=== PATIENT | female | born 1940 | race Caucasian/White ===

== ENCOUNTER 2018-12-17 08:02 | Inpatient (IN) ==
[2018-12-17] MEDS ORDERED: Isovue-370 500 ML BOTTLE IVP ONE ×2 (08:14→11:56)
[2018-12-17] MEDS ORDERED: Ondansetron 4 MG/2 ML VIAL IVP ONE (08:19)
[2018-12-17] MEDS ORDERED: *HR* FentaNYL (PF) 100 MCG/2 ML VIAL IVP ONE ×2 (08:19→14:58)
--- NOTE | 2018-12-17 08:19 | Emergency Department Note ---
Disposition Clinical Impression: Hypokalemia, Left hip pain Fracture of left ischial tuberosity Qualifiers: Encounter type: initial encounter Fracture type: closed Qualified Code(s): S32.692A - Other specified fracture of left ischium, initial encounter for closed fracture DVT, bilateral lower limbs Qualifiers: Affected thrombotic vein of extremity: unspecified vein of extremity Chronicity: acute Qualified Code(s): I82.403 - Acute embolism and thrombosis of unspecified deep veins of lower extremity, bilateral Osteomyelitis Qualifiers: Osteomyelitis type: unspecified type Osteomyelitis location: unspecified site Qualified Code(s): M86.9 - Osteomyelitis, unspecified Disposition: Admitted As Inpatient Condition: Undetermined Referrals: Lupe Ruvalcaba MD [Primary Care Provider] - Forms: ED Satisfaction Letter Time of Disposition: 11:56 General Adult HPI - General Chief complaint: ED Extremity Injury, Lower Stated complaint: Left hip pain Time Seen by Provider: 12/17/18 08:05 Source: patient, EMS Mode of arrival: EMS Limitations: no limitations Nursing Notes Reviewed: Yes Vital Signs Reviewed: Yes - History of Present Illness HPI Narrative: Patient is a 78-year-old female with a past medical history including hypertension, hyperlipidemia, Alzheimer's disease, diabetes mellitus, multiple myeloma receiving treatment at [facility] by Dr. Hutton, presenting with a chief complaint of left hip pain for 2 days. Patient states she receives physical therapy at her nursing facility. She is unable to ambulate however they will stand her up and pivot her. She states she last had physical therapy on Tuesday. She states afterwards, she complains of sharp left hip pain that is progressively getting worse. She has been taking tramadol that is prescribed to her without improvement. She denies pain radiating into her leg, back pain, numbness or tingling. She denies any history of falls or trauma. She states she receives wound care for a decubitus ulcer on her low back. They debrided it on Tuesday. She also complains of generalized abdominal pain, increasing nausea and vomiting since Tuesday as well. Pain Scale: 8 - Related Data Home Medications Medication Instructions Recorded Confirmed Atorvastatin [Lipitor] 20 mg PO HS 12/03/16 11/10/18 Isosorbide MONOnitrate [Isosorbide 60 mg PO DAILY 12/03/16 11/10/18 Mononitrate ER] Metoprolol [Lopressor] 100 mg PO DAILY 12/03/16 11/10/18 Amitriptyline [Elavil] 100 mg PO HS 03/25/17 11/10/18 Cevimeline HCl [Evoxac] 30 mg PO BID 03/25/17 11/10/18 Folic Acid 1 mg PO DAILY 03/25/17 11/10/18 Tramadol HCl [Ultram] 50 mg PO TID 03/25/17 11/10/18 Cholecalciferol (Vitamin D3) 5,000 unit PO DAILY 06/28/18 11/10/18 [Vitamin D] Multivit-Min/Iron/Folic Acid/K 1 each PO DAILY 06/28/18 11/10/18 [Adults Multivitamin Tablet] [place]-3/Dha/Epa/Fish Oil [Fish Oil 1 each PO DAILY 06/28/18 11/10/18 1,000 mg Softgel] Potassium Chloride [K-Tab ER] 20 meq PO DAILY 06/28/18 11/10/18 Calcium Carbonate/Vitamin D3 2 each PO DAILY 10/10/18 11/10/18 [Oyster Shell 250 mg + Vit D Tb] Docusate [Colace] 100 mg PO BID 10/10/18 11/10/18 Furosemide [Lasix] 40 mg PO DAILY 10/10/18 11/10/18 Linaclotide [Linzess] 145 mcg PO DAILY 10/10/18 11/10/18 Meclizine HCl [Verticalm] 25 mg PO Q8H PRN 10/10/18 11/10/18 Previous Rx's Medication Instructions Recorded Lenalidomide [Revlimid] 15 mg PO DAILY #21 capsule 09/13/18 Dexamethasone [Decadron] 20 mg PO QWEEK #20 tab 09/15/18 Allergies Allergy/AdvReac Type Severity Reaction Status Date / Time bacitracin Allergy Severe Swelling Verified 11/10/18 13:56 [From Triple Antibiotic] of Lip/Tongue/Throat Neomycin Allergy Severe Swelling Verified 11/10/18 13:56 [From Triple Antibiotic] of Lip/Tongue/Throat polymyxin B Allergy Severe Swelling Verified 11/10/18 13:56 [From Triple Antibiotic] of Lip/Tongue/Throat acetaminophen [From Vicodin] Allergy Swelling Verified 11/10/18 13:56 of Lip/Tongue/Throat hydrocodone [From Vicodin] Allergy Swelling Verified 11/10/18 13:56 of Lip/Tongue/Throat shellfish derived Allergy Swelling Verified 11/10/18 13:56 of Lip/Tongue/Throat Penicillins [PCN] AdvReac Rash Verified 11/10/18 13:56 All systems ED: reviewed and negative except as stated. Review of Systems: As Per HPI Constitutional: Denies: fever, chills Cardiovascular: Denies: chest pain, palpitations Respiratory: Denies: cough, dyspnea Gastrointestinal: Reports: abdominal pain, nausea, vomiting. Denies: diarrhea Genitourinary: Denies: dysuria, hematuria Musculoskeletal: Reports: other (left hip pain). Denies: back pain Neurological: Denies: headache, weakness, numbness, paresthesias Past Medical History - Past Medical History Attestation: Yes The following information was validated with the patient. Source: patient Medical history: Reports: cancer, diabetes, hyperlipidemia, hypertension, RA Surgical history: Reports: appendectomy, cholecystectomy, other Psychiatric history: Reports: no psych history - Social History Smoking Status: Never smoker Smokeless Tobacco Status: No Alcohol use: Reports: none Drug use: Reports: none Physical Exam - General Limitations: no limitations General appearance: alert, in no apparent distress - Head Head exam: atraumatic, normocephalic - Eye Eye exam: Present: normal appearance, EOMI - ENT ENT exam: normal exam, normal oropharynx - Neck Neck exam: Present: normal inspection, trachea midline - Chest Chest inspection: Present: normal inspection, symmetric chest wall rise - Respiratory Respiratory exam: Present: normal lung sounds bilaterally. Absent: respiratory distress, wheezes - Cardiovascular Cardiovascular exam: Present: regular rate, normal rhythm, normal heart sounds - Abdominal Exam Abdominal exam: Present: soft, other (Generalized abdominal tenderness to palpation). Absent: distention, guarding - Extremities Exam Extremities exam: Present: normal capillary refill, other (Left hip tenderness and pain to palpation. Decreased ROM and movement of left hip due to pain). Absent: pedal edema, calf tenderness - Neurological Exam Neurological exam: Present: alert, oriented X3, other (Able to wiggle toes, gina siflex and plantar flex feet). Absent: motor sensory deficit - Psychiatric Psychiatric exam: Present: normal affect, normal mood - Skin Skin exam: Present: warm, dry, other (Stage II decubitus ulcer, recently debrided and appears well) Course Vital Signs Temperature 97.7 F 12/17/18 08:05 Pulse Rate 70 12/17/18 08:05 Respiratory Rate 16 12/17/18 08:05 Blood Pressure 160/87 12/17/18 08:05 O2 Sat by Pulse Oximetry 95 12/17/18 08:05 Temperature 97.7 F 12/17/18 08:05 Pulse Rate 82 12/17/18 10:17 Respiratory Rate 16 12/17/18 10:17 Blood Pressure 170/71 12/17/18 10:17 O2 Sat by Pulse Oximetry 94 12/17/18 10:17 Oxygen Delivery Oxygen Delivery Room Air Medical Decision Making - MDM Narrative Medical decision making narrative: Patient is presenting with nontraumatic left hip pain. Has multiple myeloma. She has decreased range of motion secondary to the pain. No sensory deficits. No back pain. We will obtain x-ray of her left hip to evaluate for occult fractures. We will give her fentanyl and Zofran for pain and nausea. Patient did have abdominal tenderness to palpation. We will obtain CBC, BMP, hepatic panel, lipase, lactate to evaluate for an acute pathology as well as a CT abdomen and pelvis with IV and no oral contrast. 09:25 Labs reviewed. H/H stable, no leukocytosis, lactate normal. She has hypokalemia and will replace. Hepatic panel and lipase not elevated 10:[address] Moody, radiology, possible osteomyelitis versus chronic. Recommending MRI. Subacute fracture of left ischial tuberosity. Bilateral DVT. Spleen enhancing, possible infarcts versus artifact from contrast. Discussed this with Dr. Moody, hospitalist. 10:[address] Cunha, orthopedic surgery that no surgery would be done for the nondisplaced hip fracture. 11:25 Patient has bilateral DVT. Will start heparin. Heme/onc paged. Heparin started Discussed with Dr. Mendez, hematology who is aware and placed on consult at 11:45 We will give vancomycin and IV Rocephin for possible osteomyelitis. Lactate was normal. Blood cultures were obtained. We will also obtain CTA chest to evaluate for pulmonary embolism giving extent of bilateral DVT. Hospitalist consulted for admission. 11:50 Dr. Moody, hospitalist accepts admission - Medical Records Medical records reviewed: Yes I reviewed the patient's medical records. - Lab Data Lab results reviewed: Yes I reviewed the patient's lab results. Result diagrams: 12/17/18 08:14 12/17/18 08:15 Lab Results 12/17/18 12/17/18 12/17/18 Range/Units 08:14 08:15 08:29 WBC 6.6 (4.3-11.1) K/mcL RBC 3.10 L (3.82-4.97) M/mcL Hgb 8.5 L (11.5-15.4) g/dL Hct 28.2 L (35.3-44.9) % MCV 91.0 (83.0-100.0) fL MCH 27.4 L (28.0-33.3) pg MCHC 30.1 L (31.6-35.5) g/dL RDW 16.8 H (11.5-14.5) % Plt Count 173 (140-400) K/mcL MPV 9.5 (9.4-12.4) fL Immature Gran % 0.6 (0-4) % Seg Neutrophils % 67.2 % Lymphocytes % 19.8 % Monocytes % 11.5 % Eosinophils % 0.3 % Basophils % 0.6 % Neutrophils # 4.4 (1.6-8.9) K/mcL Lymphocytes # 1.3 (0.6-4.6) K/mcL Monocytes # 0.8 (0.0-1.3) K/mcL Eosinophils # 0.0 (0.0-0.6) K/mcL Basophils # 0.0 (0.0-0.2) K/mcL Sodium 134 L (136-145) mEq/L Potassium 3.2 L (3.5-5.1) mEq/L Chloride 99 (98-107) mEq/L Carbon Dioxide 25 (23-29) mEq/L BUN 15 (8-23) mg/dL Creatinine 0.65 (0.60-1.20) mg/dL Est GFR ( Amer) > 60 (> 60) Est GFR (Non-Af Amer) > 60 (> 60) BUN/Creatinine Ratio 23 (6-26) Glucose 178 H (70-105) mg/dL Calculated Osmolality 283 (280-300) Lactic Acid 0.7 (0.5-2.2) mmol/L Calcium 7.3 L (8.6-10.3) mg/dL Total Bilirubin 0.6 (0.3-1.0) mg/dL Direct Bilirubin 0.2 (0.0-0.2) mg/dL Indirect Bilirubin 0.4 (0.0-1.2) mg/dL AST 17 (13-39) Units/L ALT 15 (7-52) Units/L Alkaline Phosphatase 62 (34-104) Units/L Serum Total Protein 5.7 L (6.4-8.9) g/dL Albumin 2.3 L (3.5-5.7) g/dL Globulin 3.4 (2.4-3.5) g/dL Albumin/Globulin Ratio 0.7 L (1.1-2.2) Lipase 5 L (11-82) Units/L - Radiology Data Radiology results reviewed: Yes I reviewed the patient's radiology results. Hip X-Ray 12/17/18 08:14 IMPRESSION: Subtle deformity left ischial tuberosity which may reflect an age-indeterminate nondisplaced fracture. Otherwise no acute osseous abnormality. Given the degree of osteopenia, nondisplaced fractures may be radiographically occult. If pain or concern for fracture persists, consider MR imaging. D/ / 12/17/2018 09:45:33 Tracey Moody MD / letitia Interpreting Provider: Tracey Moody MD Critical Care Time Critical Care Time: Yes Total Critical Care Time: 35 Attestation: Critical care time 35 minutes managing multiple medical issues. Attestation Statement - Attestation Attestation: Patient was seen with resident physician. I reviewed the history, physical, assessment and plan, and agree with the findings. I also personally evaluated this patient and had [id number] time with this patient. 78 show female presents to the parent chief complaint of left hip pain. Patient has a history of myeloma currently being treated. Also has a history of decubitus ulcer. Which is being treated. Patient states the hip pain started sometime last night no specific traumatic injury. Patient is generally unable [place]. Pain is described as left lateral hip. She is also had some abdominal pain some nausea and vomiting. An ice fevers or chills. No other complaints. Review of systems as above remainder negative. Physical exam vital signs are stable. ENT is unremarkable. Heart regular rhythm and rate. Lungs clear. Abdomen is soft diffusely tender no guarding rigidity. Extremities tender to palpation over the lateral portion the left hip. No obvious deformities. Distal pulses are intact. Back examination around the sacrum she has a decubitus ulcer which does not appear cellulitic. It is properly dressed at the time of evaluation. Neurologically alert and oriented without focal deficits. Skin no rashes. Psych normal. ED course. Because of the patient's history of get a CT the abdomen and pelvis to look also at the back and lumbar areas. We will also get x-rays of the hip. Disposition will depend on the findings and workup. Workup revealed a variety of abnormalities including left initial tuberosity fracture. Bilateral DVTs and lower extremities. And possible osteomyelitis from the decubitus ulcer. We spoke with orthopedics, we spoke with hematology, we spoke the hospitalist service agreed to accept patient for admission. Patient was started on IV antibiotics as well as heparin. She will be admitted for additional evaluation and treatment. Agree with resident physician assessment and plan. Ankle care time 35 minutes. ED procedures.I reviewed the patient's EKG as well as the resident physician interpretation and I agree with the findings.
[2018-12-17 09:04] LABS: Basophils % 0.6 %; Eosinophils % 0.3 %; Hematocrit 28.2 % (35.3-44.9); Hemoglobin 8.5 g/dL (11.5-15.4); Immature Granulocytes % 0.6 % (0-4); Lymphocytes # 1.3 K/mcL (0.6-4.6); Lymphocytes % 19.8 %; Mean Corpuscular HGB Conc 30.1 g/dL (31.6-35.5); Mean Corpuscular Hemoglobin 27.4 pg (28.0-33.3); Mean Platelet Volume 9.5 fL (9.4-12.4); Monocytes # 0.8 K/mcL (0.0-1.3); Monocytes % 11.5 %; Neutrophils # 4.4 K/mcL (1.6-8.9); Platelet Count 173 K/mcL (140-400); Red Cell Distribution Width 16.8 % (11.5-14.5); Segmented Neutrophils % 67.2 %; White Blood Count 6.6 K/mcL (4.3-11.1)
[2018-12-17 09:22] LABS: Alanine Aminotransferase 15 Units/L (7-52); Albumin 2.3 g/dL (3.5-5.7); Albumin/Globulin Ratio 0.7 (1.1-2.2); Alkaline Phosphatase 62 Units/L (34-104); Aspartate Amino Transferase 17 Units/L (13-39); BUN/Creatinine Ratio 23 (6-26); Bilirubin,Direct 0.2 mg/dL (0.0-0.2); Bilirubin,Indirect 0.4 mg/dL (0.0-1.2); Bilirubin,Total 0.6 mg/dL (0.3-1.0); Blood Urea Nitrogen 15 mg/dL (8-23); Calcium 7.3 mg/dL (8.6-10.3); Carbon Dioxide 25 mEq/L (23-29); Chloride 99 mEq/L (98-107); Globulin 3.4 g/dL (2.4-3.5); Glucose 178 mg/dL (70-105); Lipase 5 Units/L (11-82); Osmolality,Calculated 283 (280-300); Potassium 3.2 mEq/L (3.5-5.1); Sodium 134 mEq/L (136-145); Total Protein 5.7 g/dL (6.4-8.9); eGFR For African Americans > 60 (> 60); eGFR For Non-African Americans > 60 (> 60)
[2018-12-17] MEDS ORDERED: *HR* Heparin 5,000 UNIT/ML VIAL IVP ONE (11:31)
[2018-12-17] MEDS ORDERED: cefTRIAXone 1,000 MG in Water for inj. (sterile) 10 ML IVP ONE (11:50)
--- NOTE | 2018-12-17 12:07 | Internal Med History&Physical ---
Date of Encounter: 12/17/18 Time of Encounter: 12:05 Internal Medicine - H&P: HPI Chief complaint: lt hip pain Admitted From: Home Plans for Post Hospital Care: Home History of present illness: Ms. 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 Patient not completely sure what they found at [facility]. She she also has chronic long-standing sacral decubitus ulcer for almost 3 months before she went to [facility]. Since the diagnosis of her multiple myeloma the rheumatoid arthritis medication and were stopped. She has been following Dr. rich for her multiple myeloma. She was getting treatment with methotrexate and infusion of Orencia. It was stopped after she was found to have multiple myeloma through bone biopsy. She was started on Revlimid. She was getting physical therapy at the long-term where she felt that since last 2 days she was having left hip pain after receiving physical therapy. Patient came here for further evaluation. Patient had evaluation in ER with hip x-ray which showed left ischial tuberosity subacute nondisplaced fracture. Orthopedics was consulted who did not recommend any further treatment. However on imaging there were other abnormalities found including signs of chronic osteomyelitis, feeding defending, the femoral veins which was confirmed to be DVT on ultrasound study. She has bilateral lower extremity DVTs. There was also possible infarct of spleen which could be an artifact as well as 1.1 cm indeterminate liver lesion. Patient's Labs were significant for chronic anemia mild hypokalemia. Patient was started on heparin drip as per hematology. Admission was requested for further management. Discussed CODE STATUS and patient does not want any resuscitative measures Past Med Surg Social Fam HX - Past Medical History Medical history: cancer, diabetes, hyperlipidemia, hypertension, RA Additional medical history: Multiple Myeloma Psychiatric history: no psych history - Past Surgical History Surgical History: appendectomy, cholecystectomy, other - Social History Smoking Status: Never smoker Smokeless Tobacco Status: No Alcohol use: none Drug use: none Internal Medicine - H&P: Meds Atorvastatin [Lipitor] 20 mg PO HS 12/03/16 [History] Isosorbide MONOnitrate [Isosorbide Mononitrate ER] 60 mg PO DAILY 12/03/16 [History] Metoprolol [Lopressor] 100 mg PO DAILY 12/03/16 [History] Amitriptyline [Elavil] 100 mg PO HS 03/25/17 [History] Cevimeline HCl [Evoxac] 30 mg PO BID 03/25/17 [History] Folic Acid 1 mg PO DAILY 03/25/17 [History] Tramadol HCl [Ultram] 50 mg PO TID 03/25/17 [History] Cholecalciferol (Vitamin D3) [Vitamin D] 5,000 unit PO DAILY 06/28/18 [History] Multivit-Min/Iron/Folic Acid/K [Adults Multivitamin Tablet] 1 each PO DAILY 06/28/18 [History] [place]-3/Dha/Epa/Fish Oil [Fish Oil 1,000 mg Softgel] 1 each PO DAILY 06/28/18 [History] Potassium Chloride [K-Tab ER] 20 meq PO DAILY 06/28/18 [History] Lenalidomide [Revlimid] 15 mg PO DAILY #21 capsule 09/13/18 [Rx] Dexamethasone [Decadron] 20 mg PO QWEEK #20 tab 09/15/18 [Rx] Calcium Carbonate/Vitamin D3 [Oyster Shell 250 mg + Vit D Tb] 2 each PO DAILY 10/10/18 [History] Docusate [Colace] 100 mg PO BID 10/10/18 [History] Furosemide [Lasix] 40 mg PO DAILY 10/10/18 [History] Linaclotide [Linzess] 145 mcg PO DAILY 10/10/18 [History] Meclizine HCl [Verticalm] 25 mg PO Q8H PRN 10/10/18 [History] Cholecalciferol 12/17/18 [History] Melatonin 6 mg PO HS 12/17/18 [History] Metoprolol Succinate [Toprol Xl] 100 mg PO 12/17/18 [History] Mirtazapine 15 mg PO HS 12/17/18 [History] Ondansetron HCl [Zofran] 4 mg PO Q6H PRN 12/17/18 [History] Polyethylene Glycol 3350 [MiraLAX] 17 gm PO DAILY 12/17/18 [History] Allergy/AdvReac Type Severity Reaction Status Date / Time bacitracin Allergy Severe Swelling Verified 11/10/18 13:56 [From Triple Antibiotic] of Lip/Tongue/Throat Neomycin Allergy Severe Swelling Verified 11/10/18 13:56 [From Triple Antibiotic] of Lip/Tongue/Throat polymyxin B Allergy Severe Swelling Verified 11/10/18 13:56 [From Triple Antibiotic] of Lip/Tongue/Throat acetaminophen [From Vicodin] Allergy Swelling Verified 11/10/18 13:56 of Lip/Tongue/Throat hydrocodone [From Vicodin] Allergy Swelling Verified 11/10/18 13:56 of Lip/Tongue/Throat shellfish derived Allergy Swelling Verified 11/10/18 13:56 of Lip/Tongue/Throat Penicillins [PCN] AdvReac Rash Verified 11/10/18 13:56 All Systems PM: A 10-system review of systems was performed and is negative for pertinent findings except as documented above in the HPI. - Constitutional Vitals: Temp Pulse Resp BP Pulse Ox 97.7 F 82 16 170/71 94 12/17/18 08:05 12/17/18 10:17 12/17/18 10:17 12/17/18 10:17 12/17/18 10:17 Exam: Constitutional: Vitals as noted. Conversant. appears chronically sick. thin build Eyes : Sclera white, pale conjunctive, no lid lag, ENT : Grossly normal hearing. Oropharyngeal exam unremarkable. dry mucus membranes. No JVD, no cervical lymphadenopathy. no thyromegaly or mass. Respiratory : Clear to auscultation bilaterally. No accessory muscle use, rales, rhonchi or wheezes Cardiovascular : RRR, +S1, +S2. no murmur, gallop, rubs. No chest wall tenderness GI/Abdominal : Soft, Non-tender, Non-distended, normal bowel sounds, no peritoneal signs. no orgenomegaly or mass appreciated. no hernia. sacral decubitus ulcer till bone. Has undermined edge. No slough present, bed looks healthy Musculoskeletal: no deformity noted. no edema or cyanosis. warm extremities, pulses palpable and symmetrical in UE/LE. no calf tenderness. Neurological: AO X3, CN II-XII grossly intact, grossly normal motor and sensory exam. Skin: ecchymosis on LE Pych: Good insight and judgement. Intact memory. AOx3. Internal Med - H&P Results - Labs CBC & Chem 7: 12/17/18 08:14 12/17/18 08:15 Labs: Short CBC 12/17/18 Range/Units 08:14 WBC 6.6 (4.3-11.1) K/mcL Hgb 8.5 L (11.5-15.4) g/dL Hct 28.2 L (35.3-44.9) % Plt Count 173 (140-400) K/mcL Neutrophils # 4.4 (1.6-8.9) K/mcL BMP 12/17/18 08:15 Sodium 134 L Potassium 3.2 L Chloride 99 Carbon Dioxide 25 BUN 15 Creatinine 0.65 Glucose 178 H Calcium 7.3 L Liver Function 12/17/18 Range/Units 08:15 Total Bilirubin 0.6 (0.3-1.0) mg/dL Direct Bilirubin 0.2 (0.0-0.2) mg/dL AST 17 (13-39) Units/L ALT 15 (7-52) Units/L Alkaline Phosphatase 62 (34-104) Units/L Albumin 2.3 L (3.5-5.7) g/dL - Impressions ITS Impressions Abdomen/Pelvis CT 12/17/18 08:14 IMPRESSION: 1. Sacral decubitus ulcer is noted in the midline posterior soft tissues at the level of the mid to lower sacrum. There is a focus of soft tissue gas which may be related to recent debridement. Heterogeneous areas of sclerosis within the sacrum are noted and may be related to chronic osteomyelitis. No definite acute erosive changes are identified. Follow-up MRI can be performed as clinically indicated. 2. Filling defects are noted within the common femoral veins bilaterally which could be related to mixing artifact. However these are suspicious for deep venous thrombosis and recommend further evaluation with ultrasound. 3. Subacute nondisplaced healing fracture of the left ischial tuberosity. 4. Heterogeneous appearance of the sacrum and sacroiliac joints bilaterally which may be related to prior insufficiency fractures. 5. Wedge-shaped heterogeneous areas of hypoenhancement in the spleen either related to timing of the contrast bolus versus infarcts. 6. Moderate right pleural effusion with adjacent atelectasis. 7. Heterogeneous enhancement of the liver which is nonspecific with an indeterminate 1.1 cm lesion in segment 5. This can be further evaluated with MRI once acute issues have resolved. 8. Anasarca. Results were called by Dr. Tracey Moody MD to Ginny Ramirez on 12/17/2018 at 10:16. D/ / 12/17/2018 10:24:46 Tracey Moody MD / letitia Interpreting Provider: Tracey Moody MD Hip X-Ray 12/17/18 08:14 IMPRESSION: Subtle deformity left ischial tuberosity which may reflect an age-indeterminate nondisplaced fracture. Otherwise no acute osseous abnormality. Given the degree of osteopenia, nondisplaced fractures may be radiographically occult. If pain or concern for fracture persists, consider MR imaging. D/ / 12/17/2018 09:45:33 Tracey Moody MD / letitia Interpreting Provider: Tracey Moody MD - Assessment and Plan (1) Fracture of left ischial tuberosity Current Visit: Yes Status: Acute Assessment and plan: Patient has nondisplaced subacute issue tuberosity fracture Orthopedic was consulted in ER. No indication for any intervention. Qualifiers: Encounter type: initial encounter Fracture type: closed Qualified Code(s): S32.692A - Other specified fracture of left ischium, initial encounter for closed fracture (2) DVT, bilateral lower limbs Current Visit: Yes Status: Acute Assessment and plan: Patient has bilateral lower extremity DVT including external iliac vein common femoral vein and proximal saphenous vein Patient started on heparin drip given extensive burden of DVT. We will obtain CT angiogram of the chest to evaluate for PE. Hematology has been consulted. Likely related need lifelong anticoagulation. Qualifiers: Affected thrombotic vein of extremity: unspecified vein of extremity Chronicity: acute Qualified Code(s): I82.403 - Acute embolism and thrombosis of unspecified deep veins of lower extremity, bilateral (3) Liver lesion Current Visit: Yes Status: Acute Assessment and plan: Patient has 1.1 cm lesion in segment 5 of liver. We will defer to oncology if we need further MRI testing. (4) Rheumatoid arthritis Current Visit: Yes Status: Acute Assessment and plan: Patient was on treatment with Orencia and methotrexate which are currently on hold per oncology due to multiple myeloma.. Will need outpatient follow-up. Qualifiers: Rheumatoid arthritis location: hand Rheumatoid factor presence: unspecified presence Laterality: unspecified laterality Qualified Code(s): M06.9 - Rheumatoid arthritis, unspecified (5) Chronic anemia Current Visit: Yes Status: Acute Assessment and plan: Likely related to chronic inflammation from rheumatoid arthritis We will monitor for now. (6) Hypokalemia Current Visit: Yes Status: Acute Assessment and plan: 40 meq of potassium was repleted. Monitor for now (7) Osteomyelitis Current Visit: Yes Status: Acute Assessment and plan: Patient has CT evidence of chronic osteomyelitis associated with chronic decubitus ulcer. Patient hemodynamically stable and without any signs of sepsis. Patient without any fevers. Will monitor for now. We will hold antibiotics for now. We will obtain ESR CRP and consult infectious disease tomorrow. Wound care consulted. Qualifiers: Osteomyelitis type: unspecified type Osteomyelitis location: unspecified site Qualified Code(s): M86.9 - Osteomyelitis, unspecified (8) Myeloma Current Visit: No Status: Acute Assessment and plan: Patient on Revlimid at home. Oncology consulted for further guidance. Qualifiers: Multiple myeloma remission status: unspecified Qualified Code(s): C90.00 - Multiple myeloma not having achieved remission (9) Protein-calorie malnutrition, severe Current Visit: Yes Status: Acute Assessment and plan: Likely due to multiple comorbidities and malignancy with decreased by mouth intake and recent illness We will get nutritional consult and keep patient on protein supplements. - Time Spent With Patient Total time spent is greater than 50% in coordination of care (as documented) at patient's floor/unit and/or counseling patient:
[2018-12-17] MEDS ORDERED: Naloxone 0.4 MG/ML INJ IVP PRN (12:36)
[2018-12-17 12:49] LABS: Heparin anti-factor XA UFH 0.04 IU/mL (0.30-0.70)
[2018-12-17 12:50] LABS: INR 1.2; Prothrombin Time 13.6 Seconds (9.4-12.1)
[2018-12-17 12:52] LABS: Activated Partial Thrombo Time 27.3 Seconds (26.0-36.0)
[2018-12-17] MEDS: Heparin 25,000 UNIT/250 ML D5W 25,000 UNIT/250 ML IV.SOLN IVC SCH (13:18)
[2018-12-17] MEDS: Mirtazapine 15 MG TABLET PO SCH (20:20)
[2018-12-17] MEDS: *HR* Heparin 5,000 UNIT/ML VIAL IVP PRN (20:21)
[2018-12-17] MEDS: (Cevimeline Hcl [Evoxac] 30 MG) PO SCH (20:32)
--- NOTE | 2018-12-18 08:01 | Internal Med Progress Note ---
<Helga Santos - Last Filed: 12/18/18 17:31> Hospitalist Progress Note - Encounter Date of Encounter: 12/18/18 - Exam Vitals: Temp Pulse Resp BP Pulse Ox 97.9 F 68 16 164/76 97 12/18/18 09:53 12/18/18 09:53 12/18/18 09:53 12/18/18 09:53 12/18/18 09:53 - Assessment and Plan (1) Myeloma Current Visit: No Status: Acute (2) Osteomyelitis Current Visit: Yes Status: Acute (3) Sacral decubitus ulcer Current Visit: Yes Status: Acute - Time Spent with Patient Total time spent is greater than 50% in coordination of care (as documented) at patient's floor/unit and/or counseling patient: Internal Medicine: Result - Labs CBC & Chem 7: 12/18/18 12:30 12/18/18 12:30 Labs: Short CBC 12/18/18 Range/Units 12:30 WBC 6.9 (4.3-11.1) K/mcL Hgb 8.5 L (11.5-15.4) g/dL Hct 29.0 L (35.3-44.9) % Plt Count 175 (140-400) K/mcL Neutrophils # 4.5 (1.6-8.9) K/mcL BMP 12/18/18 12:30 Sodium 131 L Potassium 3.8 Chloride 99 Carbon Dioxide 23 BUN 13 Creatinine 0.64 Glucose 145 H Calcium 7.1 L - ABG Interpretation ABG results: PT/INR, D-dimer PT 13.6 Seconds (9.4-12.1) H 12/17/18 12:12 Consult Discharge Plan - Plan Referrals: Lupe Ruvalcaba MD [Primary Care Provider] - - Attending Attestation I examined this patient and my medical decision-making was reviewed with the Resident Physician Dr Isaacs. I agree with the documented findings, disposition and treatment plan as described except to the extent set forth below. Ms Cancino is admitted with acute DVT, PE on hep gtt awake, no chest pain, pressure, sob. has chronic sacral decub and no pain or fever, she has a history of afib that she confirmed she no longer is on t reatment for gen- alert, awake,appears stated age eyes- pupils equal round cv- reg rate and irreg/irreg rhythm, normal s1,s2, no murmurs appreciated lungs- ctabl, no wheezing, rhonchi or crackles abd- soft, non tender, non distended, + bs neuro- AAOx3 Acute DVT/PE- cont hep gtt, her heme is consulted, hemodynamically stable MM- sees Dr Hutton outpt who is consulted as above Rate Controlled afib w hx afib- cont BB, was not on ac at home- cont hep gtt, awaiting heme recs Chronic sacral decub w question of chronci osteo- ID following, hold abx as no fever or wbc elevation, imaing findings likely related to debridment days ago, obtaining bone bx and will fu ID recs, wound care Acute ischial tuberosity non displaced left fracture- no surg intervention required, appreciate orhto input chronic anemia, stable incidental liver 1.1 cm lesion on imaging- rec is for outpt MRI after acute illness resolves incidental filling defect related to timing of bolus vs splenic infarct on imaging- no sxs, will await heme eval, is on hep gtt further diagnoses and plan as noted by resident <Berto Isaacs - Last Filed: 12/18/18 20:41> Hospitalist Progress Note - Encounter Date of Encounter: 12/18/18 Time of Encounter: 09:00 - Subjective Interval History: Mrs. Eckert is a 78-year-old female who presented to the ER on 12/17 complaining of shortness of breath. Past medical history of multiple myeloma with chemother apy treatment at [facility] by Dr. Hutton, Alzheimer's, hypertension, hyperlipidemia, diabetes, rheumatoid arthritis. 12/18/18: Patient says she feels the same as yesterday. Denies shortness of breath. Last bowel movement I believe was last night per the patient. - Exam Vitals: Temp Pulse Resp BP Pulse Ox 98.2 F 78 16 123/64 98 12/18/18 06:33 12/18/18 06:33 12/18/18 06:33 12/18/18 06:33 12/18/18 06:33 Exam: Gen: Elderly female. Cachectic Skin: Multiple ecchymoses. Poor skin turgor Eyes: Moist and anicteric Neck: No thyromegaly Cardio: Irregular rhythm. Distant heart sounds. Possible hepatojugular reflux. Respiratory: Right lower lobe lung sounds distant with possible crackles. CTA otherwise anteriorly GI: Left lower quadrant tender but this is baseline per the patient MSK: No clubbing of upper extremity Extremities: Capillary refill less than 2 seconds T extremities, no lower ext remity edema Neuro: As able to focus. No tremors noticed Psych: Appropriate behavior. Answered questions coherently - Assessment and Plan (1) Osteomyelitis Current Visit: Yes Status: Acute (2) Pulmonary emboli Current Visit: Yes Status: Acute (3) DVT, bilateral lower limbs Current Visit: Yes Status: Acute (4) Fracture of left ischial tuberosity Current Visit: Yes Status: Acute (5) Pleural effusion Current Visit: Yes Status: Acute (6) Afib Current Visit: Yes Status: Acute (7) Multiple myeloma Current Visit: Yes Status: Acute (8) Hypokalemia Current Visit: Yes Status: Acute (9) Hyponatremia Current Visit: Yes Status: Acute (10) Hypocalcemia Current Visit: Yes Status: Acute DVT Prophylaxis: hep drip - Summary of Assessment and Plan Summary of Assessment and Plan: PE -Likely secondary to multiple myeloma -Patient dyspneic on arrival -As seen on chest CTA. Right lower lobe. -Will need lifelong anticoagulation. Continue heparin drip. DVT -Likely secondary to multiple myeloma -As seen on venous Doppler lower extremity. Right great saphenous and left distal iliac. -Heparin drip. Fracture of L ischial tuberosity -likely 2/2 rehabilitation regimend per chart -as seen on hip x-ray 12/17/18 -No intervention for now Osteomyelitis -suspected 2/2 chronic sacral decubitis ulcer -Patient without elevated WBC or temperature. CRP high at 155. -MRI 12/17/18 showing this likely in the distal sacral region -ID consulted -will receive bone marrow bx Pleural Effusion -Unknown cause at this point -Right pleural effusion as seen on CTA -no therapy as of now A. Fib -Chronic. But potentially secondary to recent PE. -Rate stable other than most recent reading at 107. -As seen on EKG 12/18. -has not been on anticoagulation for a long time. Metoprolol succinate. Multiple myeloma -Diagnosed last year -has been treated with Revlimid Hypokalemia -consider 2/2 malnutrition -QTc not prolonged -3.2 to 3.8 today with KCl -continue to monitor Hyponatremia -chronic -continue to monitor Hypocalcemia -likely 2/2 denosumab -vit D WNL -consider repletion - Time Spent with Patient Total time spent is greater than 50% in coordination of care (as documented) at patient's floor/unit and/or counseling patient: Internal Medicine: Result - Labs CBC & Chem 7: 12/18/18 12:30 12/18/18 12:30 Labs: Short CBC 12/17/18 Range/Units 08:14 WBC 6.6 (4.3-11.1) K/mcL Hgb 8.5 L (11.5-15.4) g/dL Hct 28.2 L (35.3-44.9) % Plt Count 173 (140-400) K/mcL Neutrophils # 4.4 (1.6-8.9) K/mcL BMP 12/17/18 08:15 Sodium 134 L Potassium 3.2 L Chloride 99 Carbon Dioxide 25 BUN 15 Creatinine 0.65 Glucose 178 H Calcium 7.3 L Liver Function 12/17/18 Range/Units 08:15 Total Bilirubin 0.6 (0.3-1.0) mg/dL Direct Bilirubin 0.2 (0.0-0.2) mg/dL AST 17 (13-39) Units/L ALT 15 (7-52) Units/L Alkaline Phosphatase 62 (34-104) Units/L Albumin 2.3 L (3.5-5.7) g/dL - ABG Interpretation ABG results: PT/INR, D-dimer PT 13.6 Seconds (9.4-12.1) H 12/17/18 12:12 - Impressions Impressions Abdomen/Pelvis CT 12/17/18 08:14 IMPRESSION: 1. Sacral decubitus ulcer is noted in the midline posterior soft tissues at the level of the mid to lower sacrum. There is a focus of soft tissue gas which may be related to recent debridement. Heterogeneous areas of sclerosis within the sacrum are noted and may be related to chronic osteomyelitis. No definite acute erosive changes are identified. Follow-up MRI can be performed as clinically indicated. 2. Filling defects are noted within the common femoral veins bilaterally which could be related to mixing artifact. However these are suspicious for deep venous thrombosis and recommend further evaluation with ultrasound. 3. Subacute nondisplaced healing fracture of the left ischial tuberosity. 4. Heterogeneous appearance of the sacrum and sacroiliac joints bilaterally which may be related to prior insufficiency fractures. 5. Wedge-shaped heterogeneous areas of hypoenhancement in the spleen either related to timing of the contrast bolus versus infarcts. 6. Moderate right pleural effusion with adjacent atelectasis. 7. Heterogeneous enhancement of the liver which is nonspecific with an indeterminate 1.1 cm lesion in segment 5. This can be further evaluated with MRI once acute issues have resolved. 8. Anasarca. Results were called by Dr. Tracey Moody MD to Ginny Ramirez on 12/17/2018 at 10:16. D/ / 12/17/2018 10:24:46 Tracey Moody MD / letitia Interpreting Provider: Tracey Moody MD Hip X-Ray 12/17/18 08:14 IMPRESSION: Subtle deformity left ischial tuberosity which may reflect an age-indeterminate nondisplaced fracture. Otherwise no acute osseous abnormality. Given the degree of osteopenia, nondisplaced fractures may be radiographically occult. If pain or concern for fracture persists, consider MR imaging. D/ / 12/17/2018 09:45:33 Tracey Moody MD / letitia Interpreting Provider: Tracey Moody MD Chest CTA 12/17/18 11:56 IMPRESSION: 1. Positive study for pulmonary embolus in the right lower lobe. Mildly dilated main pulmonary artery measuring up to 3.2 cm. 2. Moderate right pleural effusion with adjacent passive atelectasis in the right middle and lower lobes. Underlying infarct cannot be excluded. 3. Multiple lytic lesions noted within the visualized skeleton correlating with known history of multiple myeloma. Age-indeterminate compression deformity of T12. There are a few sclerotic appearing lesions including the manubrium and left 2nd rib which may be related to healing fractures or prior trauma. Critical results were called by Dr. Tracey Moody MD to Ginny Ramirez on 12/17/2018 at 13:46. D/ / 12/17/2018 13:50:16 Tracey Moody MD / Nahomy Calle Interpreting Provider: Tracey Moody MD __ <Helga Santos - Last Filed: 12/18/18 17:31> (1) Myeloma Qualifiers: Multiple myeloma remission status: unspecified Qualified Code(s): C90.00 - Multiple myeloma not having achieved remission (2) Osteomyelitis Qualifiers: Osteomyelitis type: unspecified type Osteomyelitis location: unspecified site Qualified Code(s): M86.9 - Osteomyelitis, unspecified <LilapiliBerto Soren - Last Filed: 12/18/18 20:41> (1) Osteomyelitis Qualifiers: Osteomyelitis type: unspecified type Osteomyelitis location: unspecified site Qualified Code(s): M86.9 - Osteomyelitis, unspecified (3) DVT, bilateral lower limbs Qualifiers: Affected thrombotic vein of extremity: unspecified vein of extremity C hronicity: acute Qualified Code(s): I82.403 - Acute embolism and thrombosis of unspecified deep veins of lower extremity, bilateral (4) Fracture of left ischial tuberosity Qualifiers: Encounter type: initial encounter Fracture type: closed Qualified Code(s): S32.692A - Other specified fracture of left ischium, initial encounter for closed fracture
[2018-12-18] MEDS: (Cevimeline Hcl [Evoxac] 30 MG) PO SCH ×2 (08:37→22:52)
--- NOTE | 2018-12-18 09:56 | Infectious Disease Consult ---
Infectious Disease-Consult - Encounter Date/Time Date of Encounter: 12/18/18 Time of Encounter: 11:45 - Data of Consult Requesting Physician: Carlo Moody MD Primary Care Provider: Lupe Ruvalcaba MD - HPI HPI: She is a 78-year-old female with a history of sacral decubitus ulcer for the past 3 months. Infectious disease was consulted for appropriate management and choice of antibiotics for suspected osteomyelitis. Patient is a 78-year-old female with past medical history of hypertension, hyperlipidemia, as well as of her disease, DM, sacral decubitus ulcer for the past 3 months, multiple myeloma (undergoing treatment at the [facility] with Dr. Hutton) presenting with the chief complaint of left hip pain for the past 2 days. Patient went to the [facility] about 8 weeks ago because of difficulty in ambulation, had a workup there but was sent to rehabilitation for 7 weeks. She endorses that she received physical therapy at a nursing facility and last her physical therapy appointment on Tuesday. Patient says for the last 2 weeks her hip pain got progressively worse and denies any history of falls or trauma. Patient also has a low decub ulcer on her lower back and the she received her last debridement on Tuesday. She was last seen by Dr. Hutton at the [facility] on 11/10/18 and plan was to start Revlimid , methotrexate and infusion therapy was held. Of note of the oncologist notes that patient had a fall on 12/09 and juliana Hx of falls at the rehab. Workup in the ED showed that patient was afebrile, pulse : 70, RR: 16, satting at 95% on room air, her WBC : WNL, ESR of 106. Patient's hip x-ray showed subtle deformity in the left ischeal tuberosity patient for age indeterminant non-displaced fracture. Her CT contrast with a heterogenous areas of sclerosis within the sacrum and may be related to chronic osteomyelitis Orthopedic surgery was consult and no recommendations were made for any surgical intervention. Patient was also found to have bilateral DVT and was put on heparin drip. He was started on vancomycin and IV Rocephin with concerns for possible osteomyelitis the patient was admitted to the hospital for further management. The patient's wound culture from 09/20/2018 MRSA R: oxacillin - ROS Review of Systems: A 10-system review of systems was performed and is negative for pertinent findings except as documented above in the HPI. - Results CBC & Chem 7: 12/19/18 01:25 12/19/18 01:25 - Exam Vitals: Temp Pulse Resp BP Pulse Ox 97.8 F 71 14 166/76 98 12/18/18 08:30 12/18/18 08:30 12/18/18 08:30 12/18/18 08:30 12/18/18 06:33 Exam: Gen.: Vitals noted. No acute distress. Alert, awake and oriented * 3 [address], place, and time, cachectic, resting comfortably in bed. Pleasant. HEENT: oropharynx clear, Normocephalic, atraumatic, MMM Neck: supple, no JVD, no lymphadenopathy, no carotid bruit. Cardiac: RRR, no murmur, +S1/S2, No BLE edema, PMI non-displaced Pulmonary: CTA bilaterally, no wheezes, rales or rhonchi, equal chest expansion, unlabored breathing Abdomen: soft, nontender, BS noted, no guarding, undistended. No organomegaly, no pulsatile masses, Skin: warm and dry, no visible lesions. Feels warm, clammy, no rashes, no lesions, no erythema MSK: ROM not assessed. no joint swelling noted, gait not assessed while in bed. Non tender calf or clubbing, no cyanosis/clubbing/ or edema Neuro: A&O, moves all extremities, no focal deficits, sensation intact Psych: Appropriate mood and behavior, normal speech. Isosorbide MONOnitrate [Isosorbide Mononitrate ER] 60 mg PO DAILY 12/03/16 [History] Cevimeline HCl [Evoxac] 30 mg PO BID 03/25/17 [History] Tramadol HCl [Ultram] 50 mg PO TID PRN 03/25/17 [History] Multivit-Min/Iron/Folic Acid/K [Adults Multivitamin Tablet] 1 tab PO DAILY 06/28/18 [History] Calcium Carbonate/Vitamin D3 [Oyster Shell 250 mg + Vit D Tb] 2 tab PO DAILY 10/10/18 [History] Docusate [Colace] 100 mg PO BID 10/10/18 [History] Linaclotide [Linzess] 145 mcg PO DAILY 10/10/18 [History] Cholecalciferol (D-3) [Vitamin D] 5,000 unit PO DAILY 12/17/18 [History] Dexamethasone [Decadron] 20 mg PO AD 12/17/18 [History] Lenalidomide [Revlimid] 15 mg PO AD 12/17/18 [History] Melatonin 6 mg PO HS 12/17/18 [History] Metoprolol Succinate [Toprol Xl] 100 mg PO 2000 12/17/18 [History] Mirtazapine 15 mg PO HS 12/17/18 [History] Ondansetron HCl [Zofran] 4 mg PO Q6H PRN 12/17/18 [History] Ondansetron HCl [Zofran] 4 mg PO QID 12/17/18 [History] Polyethylene Glycol 3350 [MiraLAX] 17 gm PO DAILY 12/17/18 [History] 3 Allergy/AdvReac Type Severity Reaction Status Date / Time bacitracin Allergy Severe Swelling Verified 11/10/18 13:56 [From Triple Antibiotic] of Lip/Tongue/Throat Neomycin Allergy Severe Swelling Verified 11/10/18 13:56 [From Triple Antibiotic] of Lip/Tongue/Throat polymyxin B Allergy Severe Swelling Verified 11/10/18 13:56 [From Triple Antibiotic] of Lip/Tongue/Throat acetaminophen [From Vicodin] Allergy Swelling Verified 11/10/18 13:56 of Lip/Tongue/Throat hydrocodone [From Vicodin] Allergy Swelling Verified 11/10/18 13:56 of Lip/Tongue/Throat shellfish derived Allergy Swelling Verified 11/10/18 13:56 of Lip/Tongue/Throat Penicillins [PCN] AdvReac Rash Verified 11/10/18 13:56 - Assessment and Plan (1) Osteomyelitis Current Visit: Yes Status: Acute -patient has a chronic sacral decubitis ulcer for the past 3 months . -Patient was afebrile on admission with no leukocytosis -Her ESR on admission was 106. Lactate was 0.7 on admission - CT imaging with contrast showed heterogeneous area of slcerosis within the sacram and may be related to chronic osteomyelitis. No definite acute erosive changes were identified. -Patient's blood culture *2 : NGTD PLAN: -patient to get a bone biospy in order to make a definite diagnosis of osteomyelitis -She will need wound care during the course of her hospital stay and after discharge -Treatment will be contingent upon the outcome of the bone biopsy. No indications for antibiotics currently because patient is afebrile with a normal WBC Qualifiers: Qualified Code(s): M86.9 - Osteomyelitis, unspecified SNOMED Code(s): 85354924 (2) Sacral decubitus ulcer Current Visit: Yes Status: Acute plan as above SNOMED Code(s): 439636121 (3) Multiple myeloma Current Visit: Yes Status: Acute She has a history of multiple myeloma she was diagnosed with this condition in June of this year. 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 There is mildly dilated main pulmonary artery measuring up to 3.2 cm -Currently on Heparin drip SNOMED Code(s): 87102787 (5) DVT (deep venous thrombosis) Current Visit: Yes Status: Acute -Venous Doppler test showed - right distal iliac vein, common femoral vein, and superficial femoral vein him on straightening acute thrombosis -Left distal iliac vein and common femoral vein demonstrating acute thrombosis - Currently on Heparin drip. She needs lifelong anticoagulation. -As per the recommendations of oncology,she can be transitioned to either Lovenox or NOAC like Eliquis 5 mg twice a day. SNOMED Code(s): 160941942 (6) Chronic anemia Current Visit: Yes Status: Acute -Patient has a history of chronic anemia -Her hemoglobin admission was 8.5 -Due to monitor. Transfuse if hemoglobin less than 7. SNOMED Code(s): 384071722 Past Med Surg Social Fam HX - Past Medical History Medical history: cancer, diabetes, hyperlipidemia, hypertension, RA Additional medical history: Multiple Myeloma Psychiatric history: no psych history - Past Surgical History Surgical History: appendectomy, cholecystectomy, other - Social History Smoking Status: Never smoker Smokeless Tobacco Status: No Alcohol use: none Drug use: none Consult Discharge Plan - Plan Referrals: Lupe Ruvalcaba MD [Primary Care Provider] - - Attending Attestation I examined this patient and my medical decision-making was reviewed with the Resident Physician. I agree with the documented findings, disposition and treatment plan as described except to the extent set forth below. Patient is a 78-year-old woman who presented to [facility] 12/17/2018 for left hip pain. We are consulted on 12/18/2018 for Possible chronic osteomyelitis. Since admission patient has been afebrile, no tachycardia and tachypnea. Presenting labs revealed a WBC of 6.6 with normal differential. BUN/creatinine 15/0.65. Lactic acid 0.7. ESR 106 CT abdomen and pelvis reads heterogeneous areas of sclerosis within the sacrum are noted and may be related to chronic osteomyelitis. CT chest with positive pulmonary embolus in the right lower lobe multiple lytic lesions noted within the visualized skeletal. Assessment and plan: Concern for osteomyelitis of the sacrum seen on the CT abdomen pelvis with elevated ESR Left hip pain likely secondary to fracture of the left ischial tuberosity Pulmonary embolism Multiple myeloma DVT bilateral lower extremities Immunosuppressive state Assessment and plan: Consult surgery or IR for bone biopsy and cultures After cultures have been obtained we will start the patient on broad-spectrum antibiotics Patient will also need wound care
[2018-12-18] MEDS: *HR* Heparin 5,000 UNIT/ML VIAL IVP PRN ×2 (10:17→19:30)
[2018-12-18] MEDS ORDERED: Ondansetron 4 MG/2 ML VIAL IVP PRN (12:07)
[2018-12-18 12:51] LABS: Basophils % 0.4 %; Eosinophils % 0.3 %; Hemoglobin 8.5 g/dL (11.5-15.4); Immature Granulocytes % 0.6 % (0-4); Lymphocytes # 1.5 K/mcL (0.6-4.6); Lymphocytes % 22.4 %; Mean Corpuscular HGB Conc 29.3 g/dL (31.6-35.5); Mean Corpuscular Hemoglobin 27.2 pg (28.0-33.3); Mean Corpuscular Volume 92.7 fL (83.0-100.0); Monocytes # 0.8 K/mcL (0.0-1.3); Monocytes % 11.4 %; Neutrophils # 4.5 K/mcL (1.6-8.9); Platelet Count 175 K/mcL (140-400); Red Blood Count 3.13 M/mcL (3.82-4.97); Segmented Neutrophils % 64.9 %; White Blood Count 6.9 K/mcL (4.3-11.1)
[2018-12-18 13:00] LABS: Magnesium 1.7 mg/dL (1.6-2.6); Phosphorous 1.8 mg/dL (2.7-4.5)
[2018-12-18 14:01] LABS: BUN/Creatinine Ratio 20 (6-26); Blood Urea Nitrogen 13 mg/dL (8-23); Calcium 7.1 mg/dL (8.6-10.3); Carbon Dioxide 23 mEq/L (23-29); Chloride 99 mEq/L (98-107); Glucose 145 mg/dL (70-105); Osmolality,Calculated 275 (280-300); Potassium 3.8 mEq/L (3.5-5.1); Sodium 131 mEq/L (136-145); eGFR For African Americans > 60 (> 60); eGFR For Non-African Americans > 60 (> 60)
--- NOTE | 2018-12-18 17:10 | Oncology Inp Consult Note ---
Date of Encounter: 12/18/18 Time of Encounter: 17:08 Assessment and Plan (1) DVT, bilateral lower limbs Status: Acute Assessment and plan: Bilateral extensive proximal DVT and possible splenic infarct. Also PE. Given that she has melanoma and also on Revlimid she needs lifelong anticoagulation. She can be transitioned to either Lovenox or NOAC like Eliquis 5 mg twice a day. NOAC were non inferior to Lovenox in the clinical trials Qualifiers: Affected thrombotic vein of extremity: unspecified vein of extremity Chronicity: acute Qualified Code(s): I82.403 - Acute embolism and thrombosis of unspecified deep veins of lower extremity, bilateral (2) Myeloma Status: Acute Assessment and plan: Serum protein electrophoresis showed 2.8 g showed IgA kappa monoclonal protein 07/25/2018 which came down to 1.76 on November 2018 [place] light chain elevated to 77 on 07/25/2018 and came down to 41 on . Overall she is having response to treatment Hypocalcemia likely from Denosumab. Consider calcium supplement. Also low phosphorus of 1.8 on oral phosphate. Check vitamin D level Qualifiers: Multiple myeloma remission status: unspecified Qualified Code(s): C90.00 - Multiple myeloma not having achieved remission - Data of Consult Patient: known to practice within the last 3 years Requesting Physician: Helga Santos Primary Care Provider: Lupe Ruvalcaba MD - Consult Narrative Reason for consult: Bilateral lower extremity DVT, PE possible splenic infarct, myeloma History of present illness: Patient had a fall in a usp. CT abdomen and pelvis with IV contrast through emergency room 12/17/2018 showed sacral decubitus ulcer. Subacute nond isplaced healing fracture of left ischial tuberosity for which conservative management was recommended. Prior insufficiency fracture of sacroiliac joints bilaterally CAT scan also showed filling defect common femoral veins bilaterally. Subsequent ultrasound 12/17/2018 showed bilateral proximal DVT extending to the iliac veins bilateral She was hospitalized and treated with heparin. Renal function normal creatinine 0.64 CAT scan also showed wedge-shaped heterogeneous area of hypoenhancement could be splenic infarct Heterogeneous enhancement of liver with indeterminate 1.1 cm lesion in segment 5. Moderate right pleural effusion CT angiogram chest 12/17/2018 positive for PE mildly dilated pulmonary artery. Multiple lytic lesions noted consistent with her myeloma history. Subacute comp ression T12. Normocytic anemia hemoglobin 8.5. Rest of CBC unremarkable. Calcium low at 7.9. l Questionable osteomyelitis by CAT scan. Infectious disease involved. She is not on antibiotics No fever chills Oncological history Patient of Dr. Hutton at the cancer Center Plasma cell myeloma, status post bone marrow aspirate and biopsy 60% involvement by plasma cells cytogenetics is pending, FISH is not completed due to sampling. Due to her frail condition, history of falls, rheumatoid arthritis with the ability, she started treatment with Revlimid/ dexamethasone (08/25/18) Baby aspirin prophylaxis provided. Bone strengthening agents Denosumab 120 mg subcutaneous every 4 weeks. Since 08/15/2018. Last dose 11/10/2018 with office visit that day Thyroid nodules--Right-sided thyroid nodule measuring up to 4.5 cm, TR4 left thyroid nodule up to 1.3 cm in size, TR 5. thyroid function tests were normal. Bx colloid nodule, . Currently on observation Past Med Surg Social Fam HX - Past Medical History Medical history: cancer, diabetes, hyperlipidemia, hypertension, RA Additional medical history: Multiple Myeloma Psychiatric history: no psych history - Past Surgical History Surgical History: appendectomy, cholecystectomy, other - Social History Smoking Status: Never smoker Smokeless Tobacco Status: No Alcohol use: none Drug use: none Medications and Allergies Isosorbide MONOnitrate [Isosorbide Mononitrate ER] 60 mg PO DAILY 12/03/16 [History] Cevimeline HCl [Evoxac] 30 mg PO BID 03/25/17 [History] Tramadol HCl [Ultram] 50 mg PO TID PRN 03/25/17 [History] Multivit-Min/Iron/Folic Acid/K [Adults Multivitamin Tablet] 1 tab PO DAILY 06/28/18 [History] Calcium Carbonate/Vitamin D3 [Oyster Shell 250 mg + Vit D Tb] 2 tab PO DAILY 10/10/18 [History] Docusate [Colace] 100 mg PO BID 10/10/18 [History] Linaclotide [Linzess] 145 mcg PO DAILY 10/10/18 [History] Cholecalciferol (D-3) [Vitamin D] 5,000 unit PO DAILY 12/17/18 [History] Dexamethasone [Decadron] 20 mg PO AD 12/17/18 [History] Lenalidomide [Revlimid] 15 mg PO AD 12/17/18 [History] Melatonin 6 mg PO HS 12/17/18 [History] Metoprolol Succinate [Toprol Xl] 100 mg PO 2000 12/17/18 [History] Mirtazapine 15 mg PO HS 12/17/18 [History] Ondansetron HCl [Zofran] 4 mg PO Q6H PRN 12/17/18 [History] Ondansetron HCl [Zofran] 4 mg PO QID 12/17/18 [History] Polyethylene Glycol 3350 [MiraLAX] 17 gm PO DAILY 12/17/18 [History] Allergy/AdvReac Type Severity Reaction Status Date / Time bacitracin Allergy Severe Swelling Verified 11/10/18 13:56 [From Triple Antibiotic] of Lip/Tongue/Throat Neomycin Allergy Severe Swelling Verified 11/10/18 13:56 [From Triple Antibiotic] of Lip/Tongue/Throat polymyxin B Allergy Severe Swelling Verified 11/10/18 13:56 [From Triple Antibiotic] of Lip/Tongue/Throat acetaminophen [From Vicodin] Allergy Swelling Verified 11/10/18 13:56 of Lip/Tongue/Throat hydrocodone [From Vicodin] Allergy Swelling Verified 11/10/18 13:56 of Lip/Tongue/Throat shellfish derived Allergy Swelling Verified 11/10/18 13:56 of Lip/Tongue/Throat Penicillins [PCN] AdvReac Rash Verified 11/10/18 13:56 Review of systems: Sacral decubitus ulcer with some pain. Also pain in the pelvis from left ischial fracture. Deconditioning. Significant muscle wasting. Poor appetite. Denied headache. Mild nausea Oncology - Exam - Constitutional Exam: GENERAL: Alert and oriented, fatigue Mental Status: Affect appropriate for circumstances HEENT: Sclerae anicteric. No mucositis or thrush. No other oral or pharyngeal lesions or erythema. Skin: No rashes or petechiae. No evidence of skin malignancy Lymph nodes: No cervical, supraclavicular, axillary, or inguinal adenopathy. Lungs: Clear to auscultation and percussion bilaterally. Cardiovascular: Regular rate and rhythm. No gallops, murmurs, or rubs. Abdomen: Soft, nontender; no organomegaly or masses palpable. Extremities: No edema. No calf swelling or tenderness. Significant muscle wasting both upper and lower extremities Neurologic: Alert, cranial nerves II-XII intact; normal gait; deconditioning Consult Discharge Plan - Plan Referrals: Lupe Ruvalcaba MD [Primary Care Provider] - Inpatient Charges Provider: Dr. Arleen Mendez Consult - Inpatient: [id number]
[2018-12-18] MEDS: Heparin 25,000 UNIT/250 ML D5W 25,000 UNIT/250 ML IV.SOLN IVC SCH (18:31)
[2018-12-18] MEDS: traMADol 50 MG TABLET PO PRN (18:31)
[2018-12-18] MEDS ORDERED: Acetaminophen IV 500 MG/50 ML INFUS..BTL IVPB ONE (20:58)
[2018-12-18] MEDS: Mirtazapine 15 MG TABLET PO SCH (22:50)
[2018-12-18] MEDS: Metoprolol XL (24 HR) Succ 50 MG TAB.ER.24H PO SCH (22:50)
[2018-12-19 01:45] LABS: Basophils % 0.3 %; Eosinophils % 0.5 %; Hematocrit 24.5 % (35.3-44.9); Hemoglobin 7.5 g/dL (11.5-15.4); Immature Granulocytes % 0.5 % (0-4); Lymphocytes # 1.6 K/mcL (0.6-4.6); Lymphocytes % 25.9 %; Mean Corpuscular HGB Conc 30.6 g/dL (31.6-35.5); Mean Corpuscular Hemoglobin 28.4 pg (28.0-33.3); Mean Corpuscular Volume 92.8 fL (83.0-100.0); Mean Platelet Volume 8.7 fL (9.4-12.4); Monocytes # 0.8 K/mcL (0.0-1.3); Monocytes % 13.3 %; Neutrophils # 3.6 K/mcL (1.6-8.9); Platelet Count 177 K/mcL (140-400); Red Blood Count 2.64 M/mcL (3.82-4.97); Segmented Neutrophils % 59.5 %; White Blood Count 6.1 K/mcL (4.3-11.1)
[2018-12-19 02:04] LABS: BUN/Creatinine Ratio 23 (6-26); Blood Urea Nitrogen 14 mg/dL (8-23); Calcium 6.6 mg/dL (8.6-10.3); Carbon Dioxide 25 mEq/L (23-29); Chloride 100 mEq/L (98-107); Glucose 134 mg/dL (70-105); Magnesium 1.6 mg/dL (1.6-2.6); Osmolality,Calculated 276 (280-300); Potassium 3.4 mEq/L (3.5-5.1); Sodium 132 mEq/L (136-145); eGFR For African Americans > 60 (> 60); eGFR For Non-African Americans > 60 (> 60)
--- NOTE | 2018-12-19 07:00 | Internal Med Progress Note ---
<Helga Santos - Last Filed: 12/19/18 16:33> Hospitalist Progress Note - Encounter Date of Encounter: 12/19/18 - Exam Vitals: Temp Pulse Resp BP Pulse Ox 98.4 F 78 18 145/74 97 12/19/18 11:17 12/19/18 11:17 12/19/18 11:17 12/19/18 11:17 12/19/18 11:17 - Assessment and Plan (1) Osteomyelitis Current Visit: Yes Status: Acute (2) Chronic anemia Current Visit: Yes Status: Acute (3) Sacral decubitus ulcer Current Visit: Yes Status: Acute (4) Multiple myeloma Current Visit: Yes Status: Acute (5) Pulmonary emboli Current Visit: Yes Status: Acute (6) DVT (deep venous thrombosis) Current Visit: Yes Status: Acute - Time Spent with Patient Total time spent is greater than 50% in coordination of care (as documented) at patient's floor/unit and/or counseling patient: Internal Medicine: Result - Labs CBC & Chem 7: 12/19/18 01:25 12/19/18 01:25 Labs: Short CBC 12/19/18 Range/Units 01:25 WBC 6.1 (4.3-11.1) K/mcL Hgb 7.5 L (11.5-15.4) g/dL Hct 24.5 L (35.3-44.9) % Plt Count 177 (140-400) K/mcL Neutrophils # 3.6 (1.6-8.9) K/mcL BMP 12/19/18 01:25 Sodium 132 L Potassium 3.4 L Chloride 100 Carbon Dioxide 25 BUN 14 Creatinine 0.60 Glucose 134 H Calcium 6.6 L - ABG Interpretation ABG results: PT/INR, D-dimer PT 13.6 Seconds (9.4-12.1) H 12/17/18 12:12 - Impressions Impressions Abdomen/Pelvis CT 12/17/18 08:14 IMPRESSION: 1. Sacral decubitus ulcer is noted in the midline posterior soft tissues at the level of the mid to lower sacrum. There is a focus of soft tissue gas which may be related to recent debridement. Heterogeneous areas of sclerosis within the sacrum are noted and may be related to chronic osteomyelitis. No definite acute erosive changes are identified. Follow-up MRI can be performed as clinically indicated. 2. Filling defects are noted within the common femoral veins bilaterally which could be related to mixing artifact. However these are suspicious for deep venous thrombosis and recommend further evaluation with ultrasound. 3. Subacute nondisplaced healing fracture of the left ischial tuberosity. 4. Heterogeneous appearance of the sacrum and sacroiliac joints bilaterally which may be related to prior insufficiency fractures. 5. Wedge-shaped heterogeneous areas of hypoenhancement in the spleen either related to timing of the contrast bolus versus infarcts. 6. Moderate right pleural effusion with adjacent atelectasis. 7. Heterogeneous enhancement of the liver which is nonspecific with an indeterminate 1.1 cm lesion in segment 5. This can be further evaluated with MRI once acute issues have resolved. 8. Anasarca. Results were called by Dr. Tracey Moody MD to Ginny Ramirez on 12/17/2018 at 10:16. D/ / 12/17/2018 10:24:46 Tracey Moody MD / letitia Interpreting Provider: Tracey Moody MD Chest CTA 12/17/18 11:56 IMPRESSION: 1. Positive study for pulmonary embolus in the right lower lobe. Mildly dilated main pulmonary artery measuring up to 3.2 cm. 2. Moderate right pleural effusion with adjacent passive atelectasis in the right middle and lower lobes. Underlying infarct cannot be excluded. 3. Multiple lytic lesions noted within the visualized skeleton correlating with known history of multiple myeloma. Age-indeterminate compression deformity of T12. There are a few sclerotic appearing lesions including the manubrium and left 2nd rib which may be related to healing fractures or prior trauma. Critical results were called by Dr. Tracey Moody MD to Ginny Ramirez on 12/17/2018 at 13:46. D/ / 12/17/2018 13:50:16 Tracey Moody MD / Nahomy Calle Interpreting Provider: Tracey Moody MD Lumbar Spine MRI 12/17/18 13:07 IMPRESSION: 1. Limited exam due to patient motion. There are however no findings to suggest discitis/osteomyelitis. 2. Severe spinal canal stenosis, severe left and moderate right neural foraminal narrowing at L4-5 secondary to grade 1 anterolisthesis, disc bulge and facet arthropathy. 3. Moderate spinal canal stenosis and [id number] bilateral neural foraminal narrowing at L3-4. 4. Moderate spinal canal stenosis and moderate right neural foraminal narrowing at L2-3, as described above. 5. Additional multilevel degenerative changes of the lumbar spine, as described above. D/ / 12/18/2018 18:25:22 Josesito Orozco MD / kristel Interpreting Provider: Josesito Orozco MD Sacrum/Coccyx MRI 12/17/18 13:07 IMPRESSION: 1. Image quality is severely degraded secondary to pronounced motion artifact. 2. Redemonstration of ulceration of the distal sacrum corresponding to findings on CT with adjacent susceptibility artifact compatible with gas. Underlying marrow signal changes of the distal sacrum most compatible with osteomyelitis given the deep ulceration at this site. 3. Diffusely heterogeneous appearance of the marrow signal which is suboptimally evaluated given the pronounced motion artifact. Marrow signal is better visualized on comparison MRI of the lumbar spine. A few hyperintense foci are identified with the largest within the body of the right sacrum. Findings likely reflect a combination of severe osteopenia and possible metastatic disease or myeloma as noted on comparison MRI of the right hip from July 12, 2018. 4. No acute fracture of the imaged osseous structures. D/ / Zeferino Watson MD / Zeferino Watson MD Interpreting Provider: Zeferino Watson MD Consult Discharge Plan - Plan Referrals: Lupe Ruvalcaba MD [Primary Care Provider] - - Attending Attestation I examined this patient and my medical decision-making was reviewed with the Resident Physician Dr Isaacs. I agree with the documented findings, disposition and treatment plan as described except to the extent set forth below. Ms Cancino is admitted with acute DVT, PE on hep gtt awake, denies cp, pressure, sob or palpitations. Her sacrum is sore but pain is tolerable. discussed treatment plan and answered all questions gen- alert, awake,appears stated age cv- reg rate and irreg/irreg rhythm, normal s1,s2 lungs- ctabl, no wheezing, rhonchi or crackles neuro- AAOx3 Acute DVT/PE- cont hep gtt, and do not transition to eliquis or lovenox as is recommended for lifelong AC until AFTER bone bx , appreciate heme input MM- sees Dr Hutton outpt who is consulted as above Rate Controlled afib w hx afib- cont BB Chronic sacral decub w question of chronic osteo- ID following, hold abx for now, bone bx Acute ischial tuberosity non displaced left fracture- no surg intervention required, appreciate ortho input incidental liver 1.1 cm lesion on imaging- rec is for outpt MRI after acute illness resolves incidental filling defect related to timing of bolus vs splenic infarct on imaging-heme aware, is on hep gtt as above <Berto Isaacs - Last Filed: 12/19/18 17:08> Hospitalist Progress Note - Encounter Date of Encounter: 12/19/18 Time of Encounter: 08:45 - Subjective Interval History: She states she is better than yesterday. Still some pain in her decubitus ulcer where she had to lay flat for MRI yesterday. Her hip pain is somewhat improved. She denies any hemoptysis, hematuria, no hematochezia. The nurse has not noted any blood in stools. - Exam Vitals: Temp Pulse Resp BP Pulse Ox 98.1 F 75 16 112/49 100 12/19/18 03:33 12/19/18 03:33 12/19/18 03:33 12/19/18 03:33 12/19/18 03:33 Exam: Gen: Elderly female. Resting comfortably. Skin: Diffuse ecchymoses of her extremities. Good turgor of forehead and sternum. Cardio: Irregular rhythm. Normal rate. Doubt JVD, hepatojugular reflux. Respiratory: Basilar crackles worse on the right anteriorly. Posterior laguerre of left lung not heard reliably secondary to patient's immobility. Lungs clear in anterior upper laguerre. Extremities: No lower extremity leg edema. Cachectic limbs. - Assessment and Plan (1) Osteomyelitis Current Visit: Yes Status: Acute Assessment and Plan: -suspected 2/2 chronic sacral decubitis ulcer -Patient without elevated WBC or temperature. CRP high at 155. -MRI 12/17/18 showing this likely in the distal sacral region -ID consulted -will receive bone marrow bx 12/21/18 (2) Pulmonary emboli Current Visit: Yes Status: Acute Assessment and Plan: -Likely secondary to multiple myeloma -Patient dyspneic on arrival -As seen on chest CTA. Right lower lobe. -Will need lifelong anticoagulation. Continue heparin drip. (3) DVT, bilateral lower limbs Current Visit: Yes Status: Acute Assessment and Plan: -Likely secondary to multiple myeloma -As seen on venous Doppler lower extremity. Right great saphenous and left distal iliac. -Heparin drip. (4) Fracture of left ischial tuberosity Current Visit: Yes Status: Acute Assessment and Plan: -likely 2/2 rehabilitation regimend per chart -as seen on hip x-ray 12/17/18 -No intervention for now (5) Pleural effusion Current Visit: Yes Status: Acute Assessment and Plan: -Unknown cause at this point -Right pleural effusion as seen on CTA -no therapy as of now (6) Afib Current Visit: Yes Status: Acute Assessment and Plan: -Chronic. But potentially secondary to recent PE. -Rate stable and nontachycardic -As seen on EKG 12/18. -has not been on anticoagulation for a long time. Metoprolol succinate. (7) Multiple myeloma Current Visit: Yes Status: Acute Assessment and Plan: -Diagnosed last year -has been treated with Revlimid (8) Hypokalemia Current Visit: Yes Status: Acute Assessment and Plan: -consider 2/2 malnutrition -QTc not prolonged EKG 12/18/18 -3.4 this morning. Treated with 40 mEq. We will recheck in a.m. -2g Magnesium given -continue to monitor (9) Hyponatremia Current Visit: Yes Status: Acute Assessment and Plan: chronic -continue to monitor (10) Hypocalcemia Current Visit: Yes Status: Acute Assessment and Plan: -likely 2/2 denosumab -vit D WNL -1g IV calcium gluconate - Time Spent with Patient Total time spent is greater than 50% in coordination of care (as documented) at patient's floor/unit and/or counseling patient: Internal Medicine: Result - Labs CBC & Chem 7: 12/19/18 01:25 12/19/18 01:25 Labs: Short CBC 12/18/18 12/19/18 Range/Units 12:30 01:25 WBC 6.9 6.1 (4.3-11.1) K/mcL Hgb 8.5 L 7.5 L (11.5-15.4) g/dL Hct 29.0 L 24.5 L (35.3-44.9) % Plt Count 175 177 (140-400) K/mcL Neutrophils # 4.5 3.6 (1.6-8.9) K/mcL BMP 12/18/18 12/19/18 12:30 01:25 Sodium 131 L 132 L Potassium 3.8 3.4 L Chloride 99 100 Carbon Dioxide 23 25 BUN 13 14 Creatinine 0.64 0.60 Glucose 145 H 134 H Calcium 7.1 L 6.6 L - ABG Interpretation ABG results: PT/INR, D-dimer PT 13.6 Seconds (9.4-12.1) H 12/17/18 12:12 - Impressions Impressions Abdomen/Pelvis CT 12/17/18 08:14 IMPRESSION: 1. Sacral decubitus ulcer is noted in the midline posterior soft tissues at the level of the mid to lower sacrum. There is a focus of soft tissue gas which may be related to recent debridement. Heterogeneous areas of sclerosis within the sacrum are noted and may be related to chronic osteomyelitis. No definite acute erosive changes are identified. Follow-up MRI can be performed as clinically indicated. 2. Filling defects are noted within the common femoral veins bilaterally which could be related to mixing artifact. However these are suspicious for deep venous thrombosis and recommend further evaluation with ultrasound. 3. Subacute nondisplaced healing fracture of the left ischial tuberosity. 4. Heterogeneous appearance of the sacrum and sacroiliac joints bilaterally which may be related to prior insufficiency fractures. 5. Wedge-shaped heterogeneous areas of hypoenhancement in the spleen either related to timing of the contrast bolus versus infarcts. 6. Moderate right pleural effusion with adjacent atelectasis. 7. Heterogeneous enhancement of the liver which is nonspecific with an indeterminate 1.1 cm lesion in segment 5. This can be further evaluated with MRI once acute issues have resolved. 8. Anasarca. Results were called by Dr. Tracey Moody MD to Ginny Robb James on 12/17/2018 at 10:16. D/ / 12/17/2018 10:24:46 Tracey Moody MD / letitia Interpreting Provider: Tracey Moody MD Chest CTA 12/17/18 11:56 IMPRESSION: 1. Positive study for pulmonary embolus in the right lower lobe. Mildly dilated main pulmonary artery measuring up to 3.2 cm. 2. Moderate right pleural effusion with adjacent passive atelectasis in the right middle and lower lobes. Underlying infarct cannot be excluded. 3. Multiple lytic lesions noted within the visualized skeleton correlating with known history of multiple myeloma. Age-indeterminate compression deformity of T12. There are a few sclerotic appearing lesions including the manubrium and left 2nd rib which may be related to healing fractures or prior trauma. Critical results were called by Dr. Tracey Moody MD to Ginny Robb James on 12/17/2018 at 13:46. D/ / 12/17/2018 13:50:16 Tracey Moody MD / Nahomy Calle Interpreting Provider: Tracey Moody MD Lumbar Spine MRI 12/17/18 13:07 IMPRESSION: 1. Limited exam due to patient motion. There are however no findings to suggest discitis/osteomyelitis. 2. Severe spinal canal stenosis, severe left and moderate right neural foraminal narrowing at L4-5 secondary to grade 1 anterolisthesis, disc bulge and facet arthropathy. 3. Moderate spinal canal stenosis and [id number] bilateral neural foraminal narrowing at L3-4. 4. Moderate spinal canal stenosis and moderate right neural foraminal narrowing at L2-3, as described above. 5. Additional multilevel degenerative changes of the lumbar spine, as described above. D/ / 12/18/2018 18:25:22 Josesito Orozco MD / kristel Interpreting Provider: Josesito Orozco MD Sacrum/Coccyx MRI 12/17/18 13:07 IMPRESSION: 1. Image quality is severely degraded secondary to pronounced motion artifact. 2. Redemonstration of ulceration of the distal sacrum corresponding to findings on CT with adjacent susceptibility artifact compatible with gas. Underlying marrow signal changes of the distal sacrum most compatible with osteomyelitis given the deep ulceration at this site. 3. Diffusely heterogeneous appearance of the marrow signal which is suboptimally evaluated given the pronounced motion artifact. Marrow signal is better visualized on comparison MRI of the lumbar spine. A few hyperintense foci are identified with the largest within the body of the right sacrum. Findings likely reflect a combination of severe osteopenia and possible metastatic disease or myeloma as noted on comparison MRI of the right hip from July 12, 2018. 4. No acute fracture of the imaged osseous structures. D/ / Zeferino Watson MD / Zeferino Watson MD Interpreting Provider: Zeferino Watson MD <Helga Santos - Last Filed: 12/19/18 16:33> (1) Osteomyelitis Qualifiers: Osteomyelitis type: unspecified type Osteomyelitis location: unspecified site Qualified Code(s): M86.9 - Osteomyelitis, unspecified <Berto Isaacs - Last Filed: 12/19/18 17:08> (1) Osteomyelitis Qualifiers: Osteomyelitis type: unspecified type Osteomyelitis location: unspecified site Qualified Code(s): M86.9 - Osteomyelitis, unspecified (3) DVT, bilateral lower limbs Qualifiers: Affected thrombotic vein of extremity: unspecified vein of extremity Chronicity: acute Qualified Code(s): I82.403 - Acute embolism and thrombosis of unspecified deep veins of lower extremity, bilateral (4) Fracture of left ischial tuberosity Qualifiers: Encounter type: initial encounter Fracture type: closed Qualified Code(s): S32.692A - Other specified fracture of left ischium, initial encounter for closed fracture
[2018-12-19 08:39] LABS: Phosphorous 1.7 mg/dL (2.7-4.5)
[2018-12-19] MEDS: (Cevimeline Hcl [Evoxac] 30 MG) PO SCH ×2 (08:57→20:49)
[2018-12-19] MEDS: traMADol 50 MG TABLET PO PRN ×3 (09:15→20:47)
--- NOTE | 2018-12-19 10:00 | Infectious Disease Progress No ---
ID Progress Note Date of Encounter: 12/19/18 Time of Encounter: 13:00 - Subjective Subjective: Patient is seen and examined at the bedside. She endorses no acute distress patient continues to be afebrile with no white blood count. Her blood cultures so far has had no growth to date. Patient's MRI of the sacrum redemonstrated ulceration of the distal sacrum corresponding to findings on CT with adjacent susceptibility artifact compatible with gas. Underlying marrow signal changes of distal sacrum most compatible with osteomyelitis given the deep ulceration site. As per IR, patient will most likely get her bone biopsy on to rule in/out osteomyelitis. - Objective CBC & Chem 7: 12/21/18 01:17 12/21/18 01:17 - Exam Vitals: Temp Pulse Resp BP Pulse Ox 97.6 F 85 16 131/84 100 12/19/18 06:59 12/19/18 06:59 12/19/18 06:59 12/19/18 06:59 12/19/18 06:59 Exam: Gen.: Vitals noted. No acute distress. Alert, awake and oriented * 3 to person, place, and time, cachectic, resting comfortably in bed. Pleasant. HEENT: oropharynx clear, Normocephalic, atraumatic, MMM Neck: supple, no JVD, no lymphadenopathy, no carotid bruit. Cardiac: RRR, no murmur, +S1/S2, No BLE edema, PMI non-displaced Pulmonary: CTA bilaterally, no wheezes, rales or rhonchi, equal chest expansion, unlabored breathing Abdomen: soft, nontender, BS noted, no guarding, undistended. No organomegaly, no pulsatile masses, Skin: warm and dry, no visible lesions. Feels warm, clammy, no rashes, no lesions, no erythema MSK: ROM not assessed. no joint swelling noted, gait not assessed while in bed. Non tender calf or clubbing, no cyanosis/clubbing/ or edema Neuro: A&O, moves all extremities, no focal deficits, sensation intact Psych: Appropriate mood and behavior, normal speech. - Assessment and Plan (1) Osteomyelitis Current Visit: Yes Status: Suspected -patient has a chronic sacral decubitis ulcer for the past 3 months . -Patient was afebrile on admission with no leukocytosis -Her ESR on admission was 106. Lactate was 0.7 on admission - CT imaging with contrast showed heterogeneous area of slcerosis within the sacram and may be related to chronic osteomyelitis. No definite acute erosive changes were identified. -Patient's blood culture *2 : NGTD PLAN: -patient to get a bone biospy in order to make a definite diagnosis of osteomyelitis - biopsy sample will be sent for Gram stain, culture and pathology -She will need wound care during the course of her hospital stay and after discharge -Treatment will be contingent upon the outcome of the bone biopsy. No indications for antibiotics currently because patient is afebrile with a normal WBC Qualifiers: Osteomyelitis type: other chronic hematogenous Osteomyelitis location: other site Qualified Code(s): M86.58 - Other chronic hematogenous osteomyelitis, other site SNOMED Code(s): 32380607 (2) Sacral decubitus ulcer Current Visit: Yes Status: Acute plan as above Qualifiers: Pressure injury stage: stage 3 Qualified Code(s): L89.153 - Pressure ulcer of sacral region, stage 3 SNOMED Code(s): 583468838 (3) Multiple myeloma Current Visit: Yes Status: Acute She has a history of multiple myeloma she was diagnosed with this condition in June of this year. She follows with [facility] for treatment Patient is on Revlimid currently Qualifiers: Multiple myeloma remission status: not in remission Qualified Code(s): C90.00 - Multiple myeloma not having achieved remission SNOMED Code(s): 573375851 (4) Pulmonary emboli Current Visit: Yes Status: Acute -Like due to her history of ALL -Patient chest CTA was positive for pulmonary embolus in the right lower lobe. There is mildly dilated main pulmonary artery measuring up to 3.2 cm -Currently on Heparin drip Qualifiers: Pulmonary embolism type: other Chronicity: acute Acute cor pulmonale presence: without acute cor pulmonale Qualified Code(s): I26.99 - Other pulmonary embolism without acute cor pulmonale SNOMED Code(s): 25220672 (5) DVT (deep venous thrombosis) Current Visit: Yes Status: Acute -Venous Doppler test showed - right distal iliac vein, common femoral vein, and superficial femoral vein him on straightening acute thrombosis -Left distal iliac vein and common femoral vein demonstrating acute thrombosis - Currently on Heparin drip. She needs lifelong anticoagulation. -As per the recommendations of oncology,she can be transitioned to either Lovenox or NOAC like Eliquis 5 mg twice a day. Qualifiers: DVT location: lower extremity Affected thrombotic vein of extremity: femoral Chronicity: acute Laterality: bilateral Qualified Code(s): I82.413 - Acute embolism and thrombosis of femoral vein, bilateral SNOMED Code(s): 104323740 (6) Chronic anemia Current Visit: Yes Status: Acute -Patient has a history of chronic anemia -Her hemoglobin admission was 7.5 -Continue to monitor. Transfuse if hemoglobin less than 7. SNOMED Code(s): 621742119 Consult Discharge Plan - Plan Referrals: Lupe Ruvalcaba MD [Primary Care Provider] - - Attending Attestation I examined this patient and my medical decision-making was reviewed with the Resident Physician. I agree with the documented findings, disposition and treatment plan as described except to the extent set forth below. Assessment and plan: Concern for osteomyelitis of the sacrum seen on the CT abdomen pelvis with wilver vated ESR Left hip pain likely secondary to fracture of the left ischial tuberosity Pulmonary embolism Multiple myeloma DVT bilateral lower extremities Immunosuppressive state Assessment and plan: Consult surgery or IR for bone biopsy and cultures After cultures have been obtained we will start the patient on broad-spectrum antibiotics Patient will also need wound care
[2018-12-19] MEDS ORDERED: Calcium Gluconate 1gm/50mL 1 GM/50 ML BAG IVPB ONE (13:53)
--- NOTE | 2018-12-19 14:49 | Oncology Inp Progress Note ---
<Merissa Mcqueen - Last Filed: 12/19/18 17:43> Date of Encounter: 12/19/18 Time of Encounter: 14:20 (1) Multiple myeloma Current Visit: Yes Status: Acute Assessment and plan: Plasma cell myeloma, status post bone marrow aspirate and biopsy 60% involvement by plasma cells cytogenetics is pending, FISH is not completed due to sampling. Due to her frail condition, history of falls, rheumatoid arthritis with the ability, she started treatment with Revlimid/ dexamethasone (08/25/18) Baby aspirin prophylaxis provided. Serum protein electrophoresis showed 2.8 g showed IgA kappa monoclonal protein 07/25/2018 which came down to 1.76 on November 2018 [place] light chain elevated to 77 on 07/25/2018 and came down to 41 on 9. Overall she is having response to treatment Current treatment (started 08/25/18): Revlimid Dexamethasone Supportive medications: Denosumab 120 mg SQ every 4 weeks. Started 08/15/18. Last given 11/10/18. Aspirin 81 mg PO daily Hypocalcemia likely from Denosumab. Corrected calcium 8. Consider calcium supplement. Also low phosphorus of 1.8 on oral phosphate. vitamin D level 46 (WNL). On daily supplement at home (per patient) Plan: Give denosumab 120 mg SQ. Dose was due on 12/08/18. Patient notes that she did not have transportation from [facility]. Qualifiers: Multiple myeloma remission status: unspecified Qualified Code(s): C90.00 - Multiple myeloma not having achieved remission (2) Protein-calorie malnutrition, severe Current Visit: Yes Status: Acute Assessment and plan: Nutrition consulted. Recommendations appreciated. Plan: Patient to continue monitoring as outpatient with heel cover splitter at the cancer center. (3) Pulmonary emboli Current Visit: Yes Status: Acute Assessment and plan: Bilateral extensive proximal DVT and PE right lower lobe Plan: She needs lifelong anticoagulation. Currently on heparin drip. Will remain on heparin drip until after procedure scheduled for (12/21/18) She can be transitioned to either Lovenox or Eliquis 5 mg twice a day. NOAC were non inferior to Lovenox in the clinical trials Qualifiers: Pulmonary embolism type: unspecified Chronicity: acute Qualified Code(s): I26.99 - Other pulmonary embolism without acute cor pulmonale Oncology: Subj Interval history: Ms. Cancino is awake, resting in bed. She c/o shooting pain in her back/wound, r ating it as 7 out of 10. She notes that she has requested pain medication (Ultram) and nurse provided the medication during the visit. She denies nausea, vomiting, constipation, diarrhea, or abdominal pain today. She does note that she was unable to eat for a few days prior and finally was able to tolerate broth yesterday. Discussed the need for lifelong anticoagulation due to myeloma and blood clots. Verbalized awareness and understanding. She continues with Heparin drip and states that she is waiting to go for biopsy with IR later today (r/o osteomyelitis vs dec. ulcer). Discussed oncology plan to give denosumab SQ injection while hospitalized. Verbalized acceptance. - Constitutional General appearance: cooperative, no acute distress Exam: emaciated - Respiratory Respiratory exam: Present: decreased breath sounds, rhonchi Additional comments: 3.5L O2 per NC. - Cardiovascular Cardiovascular exam: Present: irregular rhythm - GI/Abdominal GI/Abdominal exam: Present: normal bowel sounds, soft. Absent: tenderness - Extremities Exam Extremities exam: Present: normal capillary refill. Absent: pedal edema - Neurological Exam Neurological exam: Present: alert, oriented X3 - Psychiatric Psychiatric exam: Present: normal affect, normal mood - Skin Skin exam: Present: dry, pallor, warm Additional comments: multiple wounds noted and covered with mepilex Oncology: Obj Data - Labs CBC & Chem 7: 12/19/18 17:02 12/19/18 01:25 Consult Discharge Plan - Plan Referrals: Lupe Ruvalcaba MD [Primary Care Provider] - Inpatient Charges Provider: Dr. Arleen Mendez <Bonnie Mendez S - Last Filed: 12/19/18 18:04> Date of Encounter: 12/19/18 (1) DVT, bilateral lower limbs Current Visit: Yes Status: Acute Qualifiers: Affected thrombotic vein of extremity: unspecified vein of extremity Chronicity: acute Qualified Code(s): I82.403 - Acute embolism and thrombosis of unspecified deep veins of lower extremity, bilateral (2) Myeloma Current Visit: No Status: Acute Qualifiers: Multiple myeloma remission status: unspecified Qualified Code(s): C90.00 - Multiple myeloma not having achieved remission Oncology: Obj Data - Labs CBC & Chem 7: 12/19/18 17:02 12/19/18 01:25 Inpatient Charges Provider: Dr. Arleen Mendez Follow up - Inpatient: [id number] - Attending Attestation I examined this patient and my medical decision-making was reviewed with the Advanced Practice Nurse. I agree with the documented findings, disposition and treatment plan as described except to the extent set forth below. 1. Multiple myeloma having response to Revlimid with Decadron. She completed last cycle of Revlimid but she was few days short. She is on her off week of Revlimid. She is having response with reduction and serum protein electrophoresis on November 2018 2. Bony metastasis. She missed her Denosumab 20 mg subcutaneous and we will give it as an inpatient 3. Sacral decubitus ulcer with possible underlying osteomyelitis. Infectious disease involved. She is on IV antibiotic. She does have some pain in that area. Biopsy of the sacral bone planned for
[2018-12-19 17:15] LABS: Hematocrit 29.1 % (35.3-44.9); Hemoglobin 8.9 g/dL (11.5-15.4)
[2018-12-19] MEDS: *HR* Heparin 5,000 UNIT/ML VIAL IVP PRN (17:44)
[2018-12-19] MEDS: 0.9 % Sodium Chloride 500 ML IVC SCH (19:25)
[2018-12-19] MEDS: Mirtazapine 15 MG TABLET PO SCH (20:48)
[2018-12-19] MEDS: Metoprolol XL (24 HR) Succ 50 MG TAB.ER.24H PO SCH (20:48)
[2018-12-19] MEDS ORDERED: Acetaminophen IV 500 MG/50 ML INFUS..BTL IVPB ONE (22:23)
--- NOTE | 2018-12-19 23:59 | Electrocardiograph Report ---
Linden retickr Test Date: 2018-12-17 Pat Name: Portia Cancino Department: [id number] Room: 3A25 Gender: F Cell Room Operator: : [id number] Requested By: Terell Jefferson Order Number: [id number] Reading MD: Chana Adhikari Measurements Intervals [place] Rate: 58 P: CO: QRS: -46 QRSD: 114 T: 75 QT: 458 QTc: 450 Interpretive Statements Atrial fibrillation LAD, consider left anterior fascicular block Left ventricular hypertrophy Nonspecific T abnormalities, lateral leads Electronically Signed On 12-19-2018 23:57:36 EDT by Chana Adhikari
[2018-12-20] MEDS: Heparin 25,000 UNIT/250 ML D5W 25,000 UNIT/250 ML IV.SOLN IVC SCH ×2 (00:01→18:38)
[2018-12-20] MEDS: traMADol 50 MG TABLET PO PRN ×2 (06:00→15:31)
[2018-12-20] MEDS: 0.9 % Sodium Chloride 500 ML IVC SCH ×2 (06:55→06:56)
[2018-12-20 08:32] LABS: Basophils # 0.1 K/mcL (0.0-0.2); Eosinophils % 0.6 %; Hematocrit 29.4 % (35.3-44.9); Hemoglobin 8.8 g/dL (11.5-15.4); Immature Granulocytes % 0.4 % (0-4); Lymphocytes # 1.6 K/mcL (0.6-4.6); Mean Corpuscular HGB Conc 29.9 g/dL (31.6-35.5); Mean Corpuscular Hemoglobin 27.8 pg (28.0-33.3); Mean Platelet Volume 8.8 fL (9.4-12.4); Monocytes # 0.6 K/mcL (0.0-1.3); Monocytes % 11.4 %; Neutrophils # 2.8 K/mcL (1.6-8.9); Platelet Count 228 K/mcL (140-400); Red Blood Count 3.16 M/mcL (3.82-4.97); Segmented Neutrophils % 54.6 %; White Blood Count 5.1 K/mcL (4.3-11.1)
[2018-12-20 08:52] LABS: BUN/Creatinine Ratio 22 (6-26); Blood Urea Nitrogen 16 mg/dL (8-23); Calcium 7.1 mg/dL (8.6-10.3); Carbon Dioxide 26 mEq/L (23-29); Chloride 98 mEq/L (98-107); Glucose 125 mg/dL (70-105); Magnesium 2.1 mg/dL (1.6-2.6); Osmolality,Calculated 281 (280-300); Phosphorous 2.4 mg/dL (2.7-4.5); Potassium 4.3 mEq/L (3.5-5.1); Sodium 134 mEq/L (136-145); eGFR For African Americans > 60 (> 60); eGFR For Non-African Americans > 60 (> 60)
[2018-12-20] MEDS: (Cevimeline Hcl [Evoxac] 30 MG) PO SCH ×2 (09:43→21:11)
--- NOTE | 2018-12-20 10:03 | Infectious Disease Progress No ---
ID Progress Note Date of Encounter: 12/20/18 Time of Encounter: 12:06 - Subjective Subjective: Patient seen and examined at the bedside. She continues to be afebrile and not leukocytotic , blood cultures have had no NGTD, she continues to be on Heparin drip for her DVT and PE, currently on tramadol for her hip pain. She'll have the heparin drip turned off few hrs before she is scheduled for her bone biopsy. - Objective CBC & Chem 7: 12/21/18 01:17 12/21/18 01:17 - Exam Vitals: Temp Pulse Resp BP Pulse Ox 98.1 F 69 16 114/62 97 12/20/18 07:21 12/20/18 07:21 12/20/18 07:21 12/20/18 07:21 12/20/18 07:21 Exam: Gen.: Vitals noted. No acute distress. Alert, awake and oriented * 3 [address], [address], and time, cachectic, resting comfortably in bed. Pleasant. HEENT: oropharynx clear, Normocephalic, atraumatic, MMM Neck: supple, no JVD, no lymphadenopathy, no carotid bruit. Cardiac: RRR, no murmur, +S1/S2, No BLE edema, PMI non-displaced Pulmonary: CTA bilaterally, no wheezes, rales or rhonchi, equal chest expansion, unlabored breathing Abdomen: soft, nontender, BS noted, no guarding, undistended. No organomegaly, no pulsatile masses, Skin: warm and dry, no visible lesions. Feels warm, clammy, no rashes, no lesions, no erythema MSK: ROM not assessed. no joint swelling noted, gait not assessed while in bed. Non tender calf or clubbing, no cyanosis/clubbing/ or edema Neuro: A&O, moves all extremities, no focal deficits, sensation intact Psych: Appropriate mood and behavior, normal speech. - Assessment and Plan (1) Osteomyelitis Current Visit: Yes Status: Suspected -patient has a chronic sacral decubitis ulcer for the past 3 months . -Patient was afebrile on admission with no leukocytosis, continues to remain afebrile with n leukocytosis. -Her ESR on admission was 106. Lactate was WNL - CT imaging with contrast showed heterogeneous area of slcerosis within the sacram and may be related to chronic osteomyelitis. No definite acute erosive changes were identified. -Patient's blood culture *2 : NGTD PLAN: -Continue to hold off on antibiotics until after biopsy -Sending intraoperative specimen for culture and Gram stain -We will start antibiotics depending on the culture results Qualifiers: Osteomyelitis type: other chronic hematogenous Osteomyelitis location: other site Qualified Code(s): M86.58 - Other chronic hematogenous osteomyelitis, other site SNOMED Code(s): 83534105 (2) Sacral decubitus ulcer Current Visit: Yes Status: Acute plan as above Qualifiers: Pressure injury stage: stage 3 Qualified Code(s): L89.153 - Pressure ulcer of sacral region, stage 3 SNOMED Code(s): 158344655 (3) Multiple myeloma Current Visit: Yes Status: Acute She has a history of multiple myeloma she was diagnosed with this condition in June of this year. She follows with [facility] for treatment Patient given denosumab in the hospital Qualifiers: Multiple myeloma remission status: not in remission Qualified Code(s): C90.00 - Multiple myeloma not having achieved remission SNOMED Code(s): 047956243 (4) Pulmonary emboli Current Visit: Yes Status: Acute -Like due to her history of ALL -Patient chest CTA was positive for pulmonary embolus in the right lower lobe. There is mildly dilated main pulmonary artery measuring up to 3.2 cm -Currently on Heparin drip Qualifiers: Pulmonary embolism type: other Chronicity: acute Acute cor pulmonale presence: without acute cor pulmonale Qualified Code(s): I26.99 - Other pulmonary embolism without acute cor pulmonale SNOMED Code(s): 87395205 (5) DVT (deep venous thrombosis) Current Visit: Yes Status: Acute -Venous Doppler test showed - right distal iliac vein, common femoral vein, and superficial femoral vein him on straightening acute thrombosis -Left distal iliac vein and common femoral vein demonstrating acute thrombosis - Currently on Heparin drip. She needs lifelong anticoagulation. -As per the recommendations of oncology,she can be transitioned to either Lovenox or NOAC like Eliquis 5 mg twice a day. Qualifiers: DVT location: lower extremity Affected thrombotic vein of extremity: femoral Chronicity: acute Laterality: bilateral Qualified Code(s): I82.413 - Acute embolism and thrombosis of femoral vein, bilateral SNOMED Code(s): 332993520 (6) Chronic anemia Current Visit: Yes Status: Acute -Patient has a history of chronic anemia -Her hemoglobin admission was 7.5 -Continue to monitor. Transfuse if hemoglobin less than 7. SNOMED Code(s): 318214027 Consult Discharge Plan - Plan Referrals: Lupe Ruvalcaba MD [Primary Care Provider] - - Attending Attestation I examined this patient and my medical decision-making was reviewed with the Resident Physician. I agree with the documented findings, disposition and treatment plan as described except to the extent set forth below. Assessment and plan: Concern for osteomyelitis of the sacrum seen on the CT abdomen pelvis with elevated ESR Left hip pain likely secondary to fracture of the left ischial tuberosity Pulmonary embolism Multiple myeloma DVT bilateral lower extremities Immunosuppressive state Assessment and plan: Consult surgery or IR for bone biopsy and cultures After cultures have been obtained we will start the patient on broad-spectrum a ntibiotics Patient will also need wound care
--- NOTE | 2018-12-20 10:06 | Internal Med Progress Note ---
<Amandeep Finney - Last Filed: 12/20/18 17:38> Hospitalist Progress Note - Encounter Date of Encounter: 12/20/18 - Exam Vitals: Temp Pulse Resp BP Pulse Ox 97.8 F 82 16 130/83 97 12/20/18 10:00 12/20/18 10:00 12/20/18 07:21 12/20/18 10:00 12/20/18 07:21 - Assessment and Plan (1) Osteomyelitis Current Visit: Yes Status: Suspected (2) Chronic anemia Current Visit: Yes Status: Acute (3) Sacral decubitus ulcer Current Visit: Yes Status: Acute (4) Multiple myeloma Current Visit: Yes Status: Acute (5) Pulmonary emboli Current Visit: Yes Status: Acute (6) DVT (deep venous thrombosis) Current Visit: Yes Status: Acute - Time Spent with Patient Total time spent is greater than 50% in coordination of care (as documented) at patient's floor/unit and/or counseling patient: Internal Medicine: Result - Labs CBC & Chem 7: 12/20/18 08:07 12/20/18 08:07 Labs: Short CBC 12/20/18 Range/Units 08:07 WBC 5.1 (4.3-11.1) K/mcL Hgb 8.8 L (11.5-15.4) g/dL Hct 29.4 L (35.3-44.9) % Plt Count 228 (140-400) K/mcL Neutrophils # 2.8 (1.6-8.9) K/mcL BMP 12/20/18 08:07 Sodium 134 L Potassium 4.3 Chloride 98 Carbon Dioxide 26 BUN 16 Creatinine 0.74 Glucose 125 H Calcium 7.1 L - ABG Interpretation ABG results: PT/INR, D-dimer PT 13.6 Seconds (9.4-12.1) H 12/17/18 12:12 Consult Discharge Plan - Plan Referrals: Lupe Ruvalcaba MD [Primary Care Provider] - - Attending Attestation I examined this patient and my medical decision-making was reviewed with the Resident Physician on 12/20/18. I agree with the documented findings, dispo sition and treatment plan as described except to the extent set forth below. Ms Cancino is currently admitted for sacral decub with concern for osteomyelitis. She remains moderate to high risk due to potential for worsening clinical status. Ms Cancino is eating lunch. She had MRI and now has more pain. No fever or chills. To have bone biopsy tomorrow. Will need heparin held. Exam: Alert. Comfortable. Mucus membranes dry. NC. Neck supple. Heart not tachy. Basilar crackles noted. Abd soft. No edema. Moves extremities. Plan biopsy tomorrow. Continue abx. Continue treatment for MM by oncology. <Berto Isaacs - Last Filed: 12/20/18 18:57> Hospitalist Progress Note - Encounter Date of Encounter: 12/20/18 Time of Encounter: 10:00 - Subjective Interval History: Patient feels the same as she did yesterday. Some continued pain of the sacral decubitus ulcer after undergoing MRI. - Exam Vitals: Temp Pulse Resp BP Pulse Ox 98.1 F 69 16 114/62 97 12/20/18 07:21 12/20/18 07:21 12/20/18 07:21 12/20/18 07:21 12/20/18 07:21 Exam: Gen.: Elderly female. No acute distress Skin: Good turgor cardio: irregular rhythm. regular rate. no hepatojugular reflex or JVD appreciated. repiratory: very decreased lung sounds in the base of R lung. some possible basilar crackles otherwise. GI: periumbilical hernia reducible and bowel sounds heard within. some tenderness around the area. Extremities: Diffuse subdermal ecchymoses. Cachectic limbs and habitus. - Assessment and Plan (1) Osteomyelitis Current Visit: Yes Status: Suspected Assessment and Plan: -suspected 2/2 chronic sacral decubitis ulcer -Patient without elevated WBC or temperature. CRP high at 155. -MRI 12/17/18 showing this likely in the distal sacral region -ID consulted -will receive bone marrow bx 12/21/18 (2) Pulmonary emboli Current Visit: Yes Status: Acute Assessment and Plan: -Likely secondary to multiple myeloma -Patient dyspneic on arrival -As seen on chest CTA. Right lower lobe. -Will need lifelong anticoagulation. Continue heparin drip. (3) DVT, bilateral lower limbs Current Visit: Yes Status: Acute Assessment and Plan: -Likely secondary to multiple myeloma -As seen on venous Doppler lower extremity. Right great saphenous and left distal iliac. -Heparin drip. (4) Fracture of left ischial tuberosity Current Visit: Yes Status: Acute Assessment and Plan: -likely 2/2 rehabilitation regimend per chart -as seen on hip x-ray 12/17/18 -No intervention for now (5) Pleural effusion Current Visit: Yes Status: Acute Assessment and Plan: -Unknown cause at this point -Right pleural effusion as seen on CTA -no therapy as of now (6) Afib Current Visit: Yes Status: Acute Assessment and Plan: -Chronic. But potentially secondary to recent PE. -As seen on EKG 12/18. -has not been on anticoagulation for a long time. Metoprolol succinate. -12/20/18: yesterday afternoon one episode of tachy at 104. other readings have been stable. cont. to monitor (7) Multiple myeloma Current Visit: Yes Status: Acute Assessment and Plan: -Diagnosed last year -has been treated with Revlimid (8) Hypokalemia Current Visit: Yes Status: Acute Assessment and Plan: 12/19/18 -consider 2/2 malnutrition -QTc not prolonged EKG 12/18/18 -3.4 this morning. Treated with 40 mEq. We will recheck in a.m. -2g Magnesium given -continue to monitor 12/20/18 -4.3 today. Mag 2.1. (9) Hyponatremia Current Visit: Yes Status: Acute Assessment and Plan: chronic -continue to monitor (10) Hypocalcemia Current Visit: Yes Status: Acute Assessment and Plan: -likely 2/2 denosumab -vit D WNL -1g IV calcium gluconate given 12/19/18 12/20/18 -350mg po tid calcium carbonate - Time Spent with Patient Total time spent is greater than 50% in coordination of care (as documented) at patient's floor/unit and/or counseling patient: Internal Medicine: Result - Labs CBC & Chem 7: 12/20/18 08:07 12/20/18 08:07 Labs: Short CBC 12/19/18 12/20/18 Range/Units 17:02 08:07 WBC 5.1 (4.3-11.1) K/mcL Hgb 8.9 L 8.8 L (11.5-15.4) g/dL Hct 29.1 L 29.4 L (35.3-44.9) % Plt Count 228 (140-400) K/mcL Neutrophils # 2.8 (1.6-8.9) K/mcL BMP 12/20/18 08:07 Sodium 134 L Potassium 4.3 Chloride 98 Carbon Dioxide 26 BUN 16 Creatinine 0.74 Glucose 125 H Calcium 7.1 L - ABG Interpretation ABG results: PT/INR, D-dimer PT 13.6 Seconds (9.4-12.1) H 12/17/18 12:12 <Amandeep Finney - Last Filed: 12/20/18 17:38> (1) Osteomyelitis Qualifiers: Osteomyelitis type: other chronic hematogenous Osteomyelitis location: other site Qualified Code(s): M86.58 - Other chronic hematogenous osteomyelitis, other site (3) Sacral decubitus ulcer Qualifiers: Pressure injury stage: stage 3 Qualified Code(s): L89.153 - Pressure ulcer of sacral region, stage 3 (4) Multiple myeloma Qualifiers: Multiple myeloma remission status: not in remission Qualified Code(s): C90.00 - Multiple myeloma not having achieved remission (5) Pulmonary emboli Qualifiers: Pulmonary embolism type: other Chronicity: acute Acute cor pulmonale presence: without acute cor pulmonale Qualified Code(s): I26.99 - Other pulmonary embolism without acute cor pulmonale (6) DVT (deep venous thrombosis) Qualifiers: DVT location: lower extremity Affected thrombotic vein of extremity: femoral Chronicity: acute Laterality: bilateral Qualified Code(s): I82.413 - Acute embolism and thrombosis of femoral vein, bilateral <Berto Isaacs G - Last Filed: 12/20/18 18:57> (1) Osteomyelitis Qualifiers: Osteomyelitis type: other chronic hematogenous Osteomyelitis location: other site Qualified Code(s): M86.58 - Other chronic hematogenous osteomyelitis, other site (2) Pulmonary emboli Qualifiers: Pulmonary embolism type: other Chronicity: acute Acute cor pulmonale presence: without acute cor pulmonale Qualified Code(s): I26.99 - Other pulmonary embolism without acute cor pulmonale (3) DVT, bilateral lower limbs Qualifiers: Affected thrombotic vein of extremity: unspecified vein of extremity Chronicity: acute Qualified Code(s): I82.403 - Acute embolism and thrombosis of unspecified deep veins of lower extremity, bilateral (4) Fracture of left ischial tuberosity Qualifiers: Encounter type: initial encounter Fracture type: closed Qualified Code(s): S32.692A - Other specified fracture of left ischium, initial encounter for closed fracture (7) Multiple myeloma Qualifiers: Multiple myeloma remission status: not in remission Qualified Code(s): C90.00 - Multiple myeloma not having achieved remission
--- NOTE | 2018-12-20 12:01 | Oncology Inp Progress Note ---
<Merissa Mcqueen M - Last Filed: 12/21/18 07:21> Date of Encounter: 12/20/18 Time of Encounter: 11:59 (1) Multiple myeloma Current Visit: Yes Status: Acute Assessment and plan: Plasma cell myeloma, status post bone marrow aspirate and biopsy 60% involvement by plasma cells cytogenetics is pending, FISH is not completed due to sampling. Due to her frail condition, history of falls, rheumatoid arthritis with the ability, she started treatment with Revlimid/ dexamethasone (08/25/18) Baby aspirin prophylaxis provided. Serum protein electrophoresis showed 2.8 g showed IgA kappa monoclonal protein 07/25/2018 which came down to 1.76 on November 2018 [place] light chain elevated to 77 on 07/25/2018 and came down to 41 on 9. Overall she is having response to treatment Current treatment (started 08/25/18): Revlimid Dexamethasone Supportive medications: Denosumab 120 mg SQ every 4 weeks. Started 08/15/18. Last given 11/10/18. Aspirin 81 mg PO daily Hypocalcemia likely from Denosumab. Corrected calcium 8. Consider calcium supplement. Also low phosphorus of 1.8 on oral phosphate. vitamin D level 46 (WNL). On daily supplement at home (per patient) Plan: denosumab 120 mg SQ gvein 12/19/18 Qualifiers: Multiple myeloma remission status: not in remission Qualified Code(s): C90.00 - Multiple myeloma not having achieved remission (2) Protein-calorie malnutrition, severe Current Visit: Yes Status: Acute Assessment and plan: Nutrition consulted. Recommendations appreciated. Plan: Patient to continue monitoring as outpatient with [facility] erp architect at the cancer center. (3) Pulmonary emboli Current Visit: Yes Status: Acute Assessment and plan: Bilateral extensive proximal DVT and PE right lower lobe Plan: She needs lifelong anticoagulation. Currently on heparin drip. Will remain on heparin drip until after procedure scheduled for (12/21/18) She can be transitioned to either Lovenox or Eliquis 5 mg twice a day. NOAC were non inferior to Lovenox in the clinical trials Qualifiers: Pulmonary embolism type: other Chronicity: acute Acute cor pulmonale presence: without acute cor pulmonale Qualified Code(s): I26.99 - Other pulmonary embolism without acute cor pulmonale Oncology: Subj Interval history: Ms. Cancino is awake and alert, talking on the phone. Respirations easy. She notes that she had her shot yesterday evening. - Constitutional General appearance: cooperative, thin - Respiratory Respiratory exam: Present: decreased breath sounds - Cardiovascular Cardiovascular exam: Present: RRR (rate controlled.) - GI/Abdominal GI/Abdominal exam: Present: soft. Absent: tenderness - Extremities Exam Extremities exam: Present: normal inspection - Neurological Exam Neurological exam: Present: alert, oriented X3. Absent: facial droop, speech deficit - Psychiatric Psychiatric exam: Present: normal affect, normal mood Oncology: Obj Data - Labs CBC & Chem 7: 12/21/18 01:17 12/21/18 01:17 Consult Discharge Plan - Plan Referrals: Lupe Ruvalcaba MD [Primary Care Provider] - Inpatient Charges Provider: Dr. Arleen Mendez <Bonnie Mendez S - Last Filed: 12/21/18 08:20> Date of Encounter: 12/20/18 (1) DVT, bilateral lower limbs Current Visit: Yes Status: Acute Qualifiers: Affected thrombotic vein of extremity: unspecified vein of extremity Chronicity: acute Qualified Code(s): I82.403 - Acute embolism and thrombosis of unspecified deep veins of lower extremity, bilateral (2) Myeloma Current Visit: No Status: Acute Qualifiers: Multiple myeloma remission status: unspecified Qualified Code(s): C90.00 - Multiple myeloma not having achieved remission Oncology: Obj Data - Labs CBC & Chem 7: 12/21/18 01:17 12/21/18 01:17 - Attending Attestation I examined this patient and my medical decision-making was reviewed with the Advanced Practice Nurse. I agree with the documented findings, disposition and treatment plan as described except to the extent set forth below. 1. Multiple myeloma and not a transplant candidate. Having good response to Revlimid and Decadron since August 2018. Also on Denosumab 120 mg subcutaneous every 4 weeks and she received a dose on 12/19/2018 as an inpatient 2. Sacral decubitus ulcer. MRI lumbar spine and sacrum showed marrow signal abnormality in the sacrum likely myeloma involvement and osteopenia. Also lumbar canal stenosis. Her second son for osteomyelitis infectious disease involved and she is on antibiotic. Sacral biopsy planned for 12/21/2018. 3. Significant deconditioning and muscle wasting. Nutritional consult
[2018-12-20] MEDS ORDERED: *HR* OxyCODONE Immed Rel 5 MG TABLET PO ONE (15:53)
[2018-12-20] MEDS: Metoprolol XL (24 HR) Succ 50 MG TAB.ER.24H PO SCH (21:04)
[2018-12-20] MEDS: Mirtazapine 15 MG TABLET PO SCH (21:05)
[2018-12-21 01:45] LABS: Basophils # 0.1 K/mcL (0.0-0.2); Basophils % 0.8 %; Eosinophils % 0.3 %; Hematocrit 24.4 % (35.3-44.9); Hemoglobin 7.3 g/dL (11.5-15.4); Immature Granulocytes % 0.3 % (0-4); Lymphocytes # 1.2 K/mcL (0.6-4.6); Lymphocytes % 20.2 %; Mean Corpuscular HGB Conc 29.9 g/dL (31.6-35.5); Mean Corpuscular Hemoglobin 27.1 pg (28.0-33.3); Mean Corpuscular Volume 90.7 fL (83.0-100.0); Mean Platelet Volume 8.7 fL (9.4-12.4); Monocytes # 0.8 K/mcL (0.0-1.3); Monocytes % 13.1 %; Neutrophils # 3.9 K/mcL (1.6-8.9); Platelet Count 227 K/mcL (140-400); Red Blood Count 2.69 M/mcL (3.82-4.97); Red Cell Distribution Width 16.8 % (11.5-14.5); Segmented Neutrophils % 65.3 %
[2018-12-21 02:01] LABS: BUN/Creatinine Ratio 25 (6-26); Blood Urea Nitrogen 18 mg/dL (8-23); Calcium 6.6 mg/dL (8.6-10.3); Carbon Dioxide 24 mEq/L (23-29); Chloride 101 mEq/L (98-107); Glucose 146 mg/dL (70-105); Magnesium 1.9 mg/dL (1.6-2.6); Osmolality,Calculated 279 (280-300); Phosphorous 1.8 mg/dL (2.7-4.5); Sodium 132 mEq/L (136-145); eGFR For African Americans > 60 (> 60); eGFR For Non-African Americans > 60 (> 60)
[2018-12-21] MEDS: 0.9 % Sodium Chloride 500 ML IVC SCH (03:05)
--- NOTE | 2018-12-21 07:19 | Internal Med Progress Note ---
<Amandeep Finney - Last Filed: 12/21/18 17:07> Hospitalist Progress Note - Encounter Date of Encounter: 12/21/18 - Exam Vitals: Temp Pulse Resp BP Pulse Ox 98.0 F 77 14 127/64 100 12/21/18 16:45 12/21/18 16:45 12/21/18 16:45 12/21/18 16:45 12/21/18 16:45 - Assessment and Plan (1) Osteomyelitis Current Visit: Yes Status: Suspected (2) Chronic anemia Current Visit: Yes Status: Acute (3) Sacral decubitus ulcer Current Visit: Yes Status: Acute (4) Multiple myeloma Current Visit: Yes Status: Acute (5) Pulmonary emboli Current Visit: Yes Status: Acute (6) DVT (deep venous thrombosis) Current Visit: Yes Status: Acute - Time Spent with Patient Total time spent is greater than 50% in coordination of care (as documented) at patient's floor/unit and/or counseling patient: Internal Medicine: Result - Labs CBC & Chem 7: 12/21/18 01:17 12/21/18 01:17 Labs: Short CBC 12/21/18 Range/Units 01:17 WBC 6.0 (4.3-11.1) K/mcL Hgb 7.3 L D (11.5-15.4) g/dL Hct 24.4 L (35.3-44.9) % Plt Count 227 (140-400) K/mcL Neutrophils # 3.9 (1.6-8.9) K/mcL BMP 12/21/18 01:17 Sodium 132 L Potassium 4.0 Chloride 101 Carbon Dioxide 24 BUN 18 Creatinine 0.72 Glucose 146 H Calcium 6.6 L - ABG Interpretation ABG results: PT/INR, D-dimer PT 14.1 Seconds (9.4-12.1) H 12/21/18 07:01 - Impressions Impressions Bone Biopsy CT 12/21/18 00:00 IMPRESSION: 1. CT guided core needle sacral bone biopsy discussed above. D/ / Lalo Rubio MD / Lalo Rubio MD Interpreting Provider: Lalo Rubio MD Consult Discharge Plan - Plan Referrals: Lupe Ruvalcaba MD [Primary Care Provider] - - Attending Attestation I examined this patient and my medical decision-making was reviewed with the Resident Physician on 12/21/18. I agree with the documented findings, disposition and treatment plan as described except to the extent set forth below. Ms Cancino is currently admitted for acute DVTs and PE as well as presumed OM. She remains moderate to high risk due to potential for worsening clinical status. Ms Cancino is resting. She is to have bone biopsy today. No fever or chills. Pain a little better today. No GI issues. Exam: Alert. Comfortable. Mucus membranes dry. NC. Neck supple. Heart irreg and not tachy. No wheeze. Abd soft. No rash. Dressing on decub. Moves all extremities. Plan: Bone biopsy today. Continue abx per ID. Continue heparin with plans to transition to NOAC. <Berto Isaacs - Last Filed: 12/21/18 20:10> Hospitalist Progress Note - Encounter Date of Encounter: 12/21/18 Time of Encounter: 09:30 - Subjective Interval History: Patient says she feels about the same as yesterday. Says her pain is controlled. She denies any hemoptysis, hematuria, hematochezia. - Exam Vitals: Temp Pulse Resp BP Pulse Ox 98.2 F 66 14 127/64 100 12/21/18 02:39 12/21/18 02:39 12/21/18 02:39 12/21/18 02:39 12/21/18 02:39 Exam: Gen.: Elderly female. Resting comfortably. Skin: Continued ecchymoses on upper extremities. No obvious sign of new subdermal bleed in other areas examined. Cardiac: Irregular rhythm. Distant but no murmurs gallops or rubs heard. Respiratory: Basilar lung sounds are distant. No obvious crackles or rhonchi or wheezes. Left anterior lower lobe not auscultated. GI: Reducible umbilical hernia with bowel sounds heard within an nontender - Assessment and Plan (1) Osteomyelitis Current Visit: Yes Status: Suspected Assessment and Plan: -suspected 2/2 chronic sacral decubitis ulcer -Patient without elevated WBC or temperature. CRP high at 155. -MRI 12/17/18 showing this likely in the distal sacral region -ID consulted -will receive bone marrow bx 12/21/18 12/21/18 -Blood cultures negative 2 to date -Sacral biopsy results pending (2) Pulmonary emboli Current Visit: Yes Status: Acute Assessment and Plan: -Likely secondary to multiple myeloma -Patient dyspneic on arrival -As seen on chest CTA. Right lower lobe. -Will need lifelong anticoagulation. Continue heparin drip. 12/21/18 -No updates (3) DVT, bilateral lower limbs Current Visit: Yes Status: Acute Assessment and Plan: -Likely secondary to multiple myeloma -As seen on venous Doppler lower extremity. Right great saphenous and left distal iliac. -Heparin drip. 12/21/18 -No updates (4) Fracture of left ischial tuberosity Current Visit: Yes Status: Acute Assessment and Plan: -likely 2/2 rehabilitation regimend per chart -as seen on hip x-ray 12/17/18 -No intervention for now (5) Pleural effusion Current Visit: Yes Status: Acute Assessment and Plan: -Unknown cause at this point -Right pleural effusion as seen on CTA -no therapy as of now (6) Afib Current Visit: Yes Status: Acute Assessment and Plan: -Chronic. But potentially secondary to recent PE. -As seen on EKG 12/18. -has not been on anticoagulation for a long time. Metoprolol succinate. 12/20/18 -yesterday afternoon one episode of tachy at 104. other readings have been stable. cont. to monitor (7) Multiple myeloma Current Visit: Yes Status: Acute Assessment and Plan: -Diagnosed last year -has been treated with Revlimid (8) Hypokalemia Current Visit: Yes Status: Acute Assessment and Plan: 12/19/18 -consider 2/2 malnutrition -QTc not prolonged EKG 12/18/18 -3.4 this morning. Treated with 40 mEq. We will recheck in a.m. -2g Magnesium given -continue to monitor 12/20/18 -4.3 today. Mag 2.1. 12/21/18 -4.0. Mag 1.9 (9) Hyponatremia Current Visit: Yes Status: Acute Assessment and Plan: chronic -continue to monitor (10) Hypocalcemia Current Visit: Yes Status: Acute Assessment and Plan: -likely 2/2 denosumab -vit D WNL -1g IV calcium gluconate given 12/19/18 12/20/18 -350mg po tid calcium carbonate DVT Prophylaxis: hep drip - Summary of Assessment and Plan Summary of Assessment and Plan: (1) Osteomyelitis Current Visit: Yes Status: Suspected Assessment and Plan: -suspected 2/2 chronic sacral decubitis ulcer -Patient without elevated WBC or temperature. CRP high at 155. -MRI 12/17/18 showing this likely in the distal sacral region -ID consulted -will receive bone marrow bx 12/21/18 12/21/18 -Blood cultures negative 2 to date -Sacral biopsy results pending (2) Pulmonary emboli Current Visit: Yes Status: Acute Assessment and Plan: -Likely secondary to multiple myeloma -Patient dyspneic on arrival -As seen on chest CTA. Right lower lobe. -Will need lifelong anticoagulation. Continue heparin drip. 12/21/18 -No updates (3) DVT, bilateral lower limbs Current Visit: Yes Status: Acute Assessment and Plan: -Likely secondary to multiple myeloma -As seen on venous Doppler lower extremity. Right great saphenous and left distal iliac. -Heparin drip. 12/21/18 -No updates (4) Fracture of left ischial tuberosity Current Visit: Yes Status: Acute Assessment and Plan: -likely 2/2 rehabilitation regimend per chart -as seen on hip x-ray 12/17/18 -No intervention for now (5) Pleural effusion Current Visit: Yes Status: Acute Assessment and Plan: -Unknown cause at this point -Right pleural effusion as seen on CTA -no therapy as of now (6) Afib Current Visit: Yes Status: Acute Assessment and Plan: -Chronic. But potentially secondary to recent PE. -As seen on EKG 12/18. -has not been on anticoagulation for a long time. Metoprolol succinate. -12/20/18: yesterday afternoon one episode of tachy at 104. other readings have been stable. cont. to monitor (7) Multiple myeloma Current Visit: Yes Status: Acute Assessment and Plan: -Diagnosed last year -has been treated with Revlimid (8) Hypokalemia Current Visit: Yes Status: Acute Assessment and Plan: 12/19/18 -consider 2/2 malnutrition -QTc not prolonged EKG 12/18/18 -3.4 this morning. Treated with 40 mEq. We will recheck in a.m. -2g Magnesium given -continue to monitor 12/20/18 -4.3 today. Mag 2.1. 12/21/18 -4.0. Mag 1.9 (9) Hyponatremia Current Visit: Yes Status: Acute Assessment and Plan: chronic -continue to monitor (10) Hypocalcemia Current Visit: Yes Status: Acute Assessment and Plan: -likely 2/2 denosumab -vit D WNL -1g IV calcium gluconate given 12/19/18 12/20/18 -350mg po tid calcium carbonate - Time Spent with Patient Total time spent is [place] Internal Medicine: Result - Labs CBC & Chem 7: 12/21/18 01:17 12/21/18 01:17 Labs: Short CBC 12/20/18 12/21/18 Range/Units 08:07 01:17 WBC 5.1 6.0 (4.3-11.1) K/mcL Hgb 8.8 L 7.3 L D (11.5-15.4) g/dL Hct 29.4 L 24.4 L (35.3-44.9) % Plt Count 228 227 (140-400) K/mcL Neutrophils # 2.8 3.9 (1.6-8.9) K/mcL BMP 12/20/18 12/21/18 08:07 01:17 Sodium 134 L 132 L Potassium 4.3 4.0 Chloride 98 101 Carbon Dioxide 26 24 BUN 16 18 Creatinine 0.74 0.72 Glucose 125 H 146 H Calcium 7.1 L 6.6 L - ABG Interpretation ABG results: PT/INR, D-dimer PT 13.6 Seconds (9.4-12.1) H 12/17/18 12:12 <Amandeep Finney - Last Filed: 12/21/18 17:07> (1) Osteomyelitis Qualifiers: Osteomyelitis type: other chronic hematogenous Osteomyelitis location: other site Qualified Code(s): M86.58 - Other chronic hematogenous osteomyelitis, other site (3) Sacral decubitus ulcer Qualifiers: Pressure injury stage: stage 3 Qualified Code(s): L89.153 - Pressure ulcer of sacral region, stage 3 (4) Multiple myeloma Qualifiers: Multiple myeloma remission status: not in remission Qualified Code(s): C90.00 - Multiple myeloma not having achieved remission (5) Pulmonary emboli Qualifiers: Pulmonary embolism type: other Chronicity: acute Acute cor pulmonale presence: without acute cor pulmonale Qualified Code(s): I26.99 - Other pulmonary embolism without acute cor pulmonale (6) DVT (deep venous thrombosis) Qualifiers: DVT location: lower extremity Affected thrombotic vein of extremity: femoral Chronicity: acute Laterality: bilateral Qualified Code(s): I82.413 - Acute embolism and thrombosis of femoral vein, bilateral <Keli Isaacsh G - Last Filed: 12/21/18 20:10> (1) Osteomyelitis Qualifiers: Osteomyelitis type: other chronic hematogenous Osteomyelitis location: other site Qualified Code(s): M86.58 - Other chronic hematogenous osteomyelitis, other site (2) Pulmonary emboli Qualifiers: Pulmonary embolism type: other Chronicity: acute Acute cor pulmonale presence: without acute cor pulmonale Qualified Code(s): I26.99 - Other pulmonary embolism without acute cor pulmonale (3) DVT, bilateral lower limbs Qualifiers: Affected thrombotic vein of extremity: unspecified vein of extremity Chronicity: acute Qualified Code(s): I82.403 - Acute embolism and thrombosis of unspecified deep veins of lower extremity, bilateral (4) Fracture of left ischial tuberosity Qualifiers: Encounter type: initial encounter Fracture type: closed Qualified Code(s): S32.692A - Other specified fracture of left ischium, initial encounter for closed fracture (7) Multiple myeloma Qualifiers: Multiple myeloma remission status: not in remission Qualified Code(s): C90.00 - Multiple myeloma not having achieved remission
[2018-12-21 07:22] LABS: INR 1.2; Prothrombin Time 14.1 Seconds (9.4-12.1)
[2018-12-21] MEDS: (Cevimeline Hcl [Evoxac] 30 MG) PO SCH ×2 (08:53→20:25)
--- NOTE | 2018-12-21 10:12 | Infectious Disease Progress No ---
ID Progress Note - Subjective Subjective: Patient seen and examined at the bedside. She continues to be afebrile and not leukocytotic , blood cultures have had no NGTD, she continues to be on Heparin drip for her DVT and PE, currently on tramadol for her hip pain. She'll have the heparin drip turned off few hrs before she is scheduled for her bone biopsy. - Objective CBC & Chem 7: 12/21/18 01:17 12/21/18 01:17 - Exam Vitals: Temp Pulse Resp BP Pulse Ox 98.1 F 77 14 147/80 100 12/21/18 07:25 12/21/18 07:25 12/21/18 07:25 12/21/18 07:25 12/21/18 07:25 - Assessment and Plan (1) Osteomyelitis Current Visit: Yes Status: Suspected -patient has a chronic sacral decubitis ulcer for the past 3 months . -Patient was afebrile on admission with no leukocytosis, continues to remain afebrile with n leukocytosis. -Her ESR on admission was 106. Lactate was WNL - CT imaging with contrast showed heterogeneous area of slcerosis within the sacram and may be related to chronic osteomyelitis. No definite acute erosive changes were identified. -Patient's blood culture *2 : NGTD PLAN: -Continue to hold off on antibiotics until after biopsy -Sending intraoperative specimen for culture and Gram stain -We will start antibiotics depending on the culture results Qualifiers: Osteomyelitis type: other chronic hematogenous Osteomyelitis location: other site Qualified Code(s): M86.58 - Other chronic hematogenous osteomyelitis, other site SNOMED Code(s): 43686908 (2) Sacral decubitus ulcer Current Visit: Yes Status: Acute plan as above Qualifiers: Pressure injury stage: stage 3 Qualified Code(s): L89.153 - Pressure ulcer of sacral region, stage 3 SNOMED Code(s): 580904945 (3) Multiple myeloma Current Visit: Yes Status: Acute She has a history of multiple myeloma she was diagnosed with this condition in June of this year. She follows with [facility] for treatment Patient given denosumab in the hospital Qualifiers: Multiple myeloma remission status: not in remission Qualified Code(s): C90.00 - Multiple myeloma not having achieved remission SNOMED Code(s): 464669710 (4) Pulmonary emboli Current Visit: Yes Status: Acute -Like due to her history of ALL -Patient chest CTA was positive for pulmonary embolus in the right lower lobe. There is mildly dilated main pulmonary artery measuring up to 3.2 cm -Currently on Heparin drip Qualifiers: Pulmonary embolism type: other Chronicity: acute Acute cor pulmonale presence: without acute cor pulmonale Qualified Code(s): I26.99 - Other pulmo nary embolism without acute cor pulmonale SNOMED Code(s): 71154396 (5) DVT (deep venous thrombosis) Current Visit: Yes Status: Acute -Venous Doppler test showed - right distal iliac vein, common femoral vein, and superficial femoral vein him on straightening acute thrombosis -Left distal iliac vein and common femoral vein demonstrating acute thrombosis - Currently on Heparin drip. She needs lifelong anticoagulation. -As per the recommendations of oncology,she can be transitioned to either Lovenox or NOAC like Eliquis 5 mg twice a day. Qualifiers: DVT location: lower extremity Affected thrombotic vein of extremity: femoral Chronicity: acute Laterality: bilateral Qualified Code(s): I82.413 - Acute embolism and thrombosis of femoral vein, bilateral SNOMED Code(s): 983547207 (6) Chronic anemia Current Visit: Yes Status: Acute -Patient has a history of chronic anemia -Her hemoglobin admission was 7.5 -Continue to monitor. Transfuse if hemoglobin less than 7. SNOMED Code(s): 921299644 Consult Discharge Plan - Plan Referrals: Lupe Ruvalcaba MD [Primary Care Provider] - - Attending Attestation Assessment and plan: Concern for osteomyelitis of the sacrum seen on the CT abdomen pelvis with elevated ESR Left hip pain likely secondary to fracture of the left ischial tuberosity Pulmonary embolism Multiple myeloma DVT bilateral lower extremities Immunosuppressive state REcommendations await culture results and path report patient can be followed as outpatient if plan for IV antibiotics treatment
[2018-12-21] MEDS ORDERED: *HR* Midazolam HCl 2 MG/2 ML VIAL IVP ONE (11:02)
[2018-12-21] MEDS ORDERED: *HR* FentaNYL (PF) 100 MCG/2 ML VIAL IVP ONE (11:02)
[2018-12-21] MEDS ORDERED: 0.9 % Sodium Chloride 500 ML ONE (11:16)
--- NOTE | 2018-12-21 11:39 | IR Procedure Note ---
Date of procedure: 12/21/18 Consent Obtained: Written consent Timeout: Correct patient and procedure verified, Correct site verified, Time out performed, Skin prep completed Local anesthetic: Lidocaine 1% Was there an assistant nurse manager present: No Estimated blood loss (cc): 0 Complications: None; Tolerated procedure well Indications: Osteomyelitis Procedure Performed: Sacral biopsy Post Procedure Treatment Plan: monitor on floor Specimen: to path
[2018-12-21] MEDS: traMADol 50 MG TABLET PO PRN (15:09)
[2018-12-21] MEDS: Mirtazapine 15 MG TABLET PO SCH (20:24)
[2018-12-21] MEDS: Metoprolol XL (24 HR) Succ 50 MG TAB.ER.24H PO SCH (20:24)
[2018-12-21] MEDS ORDERED: *HR* Heparin 5,000 UNIT/ML VIAL IVP PRN ×2 (20:43)
[2018-12-21] MEDS ORDERED: Heparin 25,000 UNIT/250 ML D5W 25,000 UNIT/250 ML IV.SOLN IVC SCH (20:45)
[2018-12-21 21:38] LABS: Hematocrit 25.1 % (35.3-44.9); Hemoglobin 7.6 g/dL (11.5-15.4); Mean Corpuscular HGB Conc 30.3 g/dL (31.6-35.5); Mean Corpuscular Hemoglobin 27.5 pg (28.0-33.3); Mean Corpuscular Volume 90.9 fL (83.0-100.0); Mean Platelet Volume 8.3 fL (9.4-12.4); Platelet Count 191 K/mcL (140-400); Red Blood Count 2.76 M/mcL (3.82-4.97); Red Cell Distribution Width 16.8 % (11.5-14.5); White Blood Count 4.9 K/mcL (4.3-11.1)
[2018-12-21 21:45] LABS: INR 1.2; Prothrombin Time 13.7 Seconds (9.4-12.1)
[2018-12-22 06:39] LABS: Basophils % 0.6 %; Eosinophils % 0.2 %; Hematocrit 27.1 % (35.3-44.9); Hemoglobin 7.9 g/dL (11.5-15.4); Immature Granulocytes % 0.4 % (0-4); Lymphocytes # 1.1 K/mcL (0.6-4.6); Lymphocytes % 24.3 %; Mean Corpuscular HGB Conc 29.2 g/dL (31.6-35.5); Mean Corpuscular Hemoglobin 27.6 pg (28.0-33.3); Mean Corpuscular Volume 94.8 fL (83.0-100.0); Mean Platelet Volume 8.7 fL (9.4-12.4); Monocytes # 0.7 K/mcL (0.0-1.3); Monocytes % 14.5 %; Neutrophils # 2.8 K/mcL (1.6-8.9); Platelet Count 205 K/mcL (140-400); Red Blood Count 2.86 M/mcL (3.82-4.97); Red Cell Distribution Width 16.7 % (11.5-14.5); White Blood Count 4.7 K/mcL (4.3-11.1)
[2018-12-22 06:57] LABS: BUN/Creatinine Ratio 19 (6-26); Blood Urea Nitrogen 15 mg/dL (8-23); Carbon Dioxide 25 mEq/L (23-29); Chloride 97 mEq/L (98-107); Glucose 153 mg/dL (70-105); Osmolality,Calculated 286 (280-300); Phosphorous 1.8 mg/dL (2.7-4.5); Potassium 4.3 mEq/L (3.5-5.1); Sodium 136 mEq/L (136-145); eGFR For African Americans > 60 (> 60); eGFR For Non-African Americans > 60 (> 60)
[2018-12-22] MEDS: traMADol 50 MG TABLET PO PRN ×2 (07:54→16:50)
[2018-12-22] MEDS: (Cevimeline Hcl [Evoxac] 30 MG) PO SCH ×2 (07:56→20:54)
--- NOTE | 2018-12-22 08:33 | Internal Med Progress Note ---
<Amandeep Finney - Last Filed: 12/22/18 16:51> Hospitalist Progress Note - Encounter Date of Encounter: 12/22/18 - Exam Vitals: Temp Pulse Resp BP Pulse Ox 98.3 F 63 17 105/63 94 12/22/18 15:14 12/22/18 15:14 12/22/18 15:14 12/22/18 15:14 12/22/18 15:14 - Assessment and Plan (1) Osteomyelitis Current Visit: Yes Status: Suspected (2) Chronic anemia Current Visit: Yes Status: Acute (3) Sacral decubitus ulcer Current Visit: Yes Status: Acute (4) Multiple myeloma Current Visit: Yes Status: Acute (5) Pulmonary emboli Current Visit: Yes Status: Acute (6) DVT (deep venous thrombosis) Current Visit: Yes Status: Acute - Time Spent with Patient Total time spent is greater than 50% in coordination of care (as documented) at patient's floor/unit and/or counseling patient: Internal Medicine: Result - Labs CBC & Chem 7: 12/22/18 06:18 12/22/18 06:18 Labs: Short CBC 12/21/18 12/22/18 Range/Units 21:28 06:18 WBC 4.9 4.7 (4.3-11.1) K/mcL Hgb 7.6 L 7.9 L (11.5-15.4) g/dL Hct 25.1 L 27.1 L (35.3-44.9) % Plt Count 191 205 (140-400) K/mcL Neutrophils # 2.8 (1.6-8.9) K/mcL BMP 12/22/18 06:18 Sodium 136 Potassium 4.3 Chloride 97 L Carbon Dioxide 25 BUN 15 Creatinine 0.77 Glucose 153 H Calcium 7.0 L - ABG Interpretation ABG results: PT/INR, D-dimer PT 13.7 Seconds (9.4-12.1) H 12/21/18 21:28 Consult Discharge Plan - Plan Referrals: Lupe Ruvalcaba MD [Primary Care Provider] - - Attending Attestation I examined this patient and my medical decision-making was reviewed with the Resident Physician on 12/22/18. I agree with the documented findings, disposition and treatment plan as described except to the extent set forth below. Ms Cancino is currently admitted for DVTs/PEs. She is s/p bone biopsy. She remains moderate to high risk due to potential for worsening clinical status. Ms Cancino is eating lunch. She is doing OK. Pain controlled. No fever or chills. Bone cx negative thus far. Exam: Alert. Comfortable. Mucus membranes dry. NC. Neck supple. Heart not tachy. Lungs diminished. ABd soft. Dressing intact. No rash. No edema Plan: IV abx ordered per ID. Switch to PO Eliquis. Plan d/c to SNF tomorrow. <Berto Isaacs - Last Filed: 12/22/18 17:45> Hospitalist Progress Note - Encounter Date of Encounter: 12/22/18 Time of Encounter: 06:00 - Subjective Interval History: Patient states she feels some better and more alert. She complains of constipation and some continued musculoskeletal pain. - Exam Vitals: Temp Pulse Resp BP Pulse Ox 98.6 F 73 16 127/69 96 12/22/18 06:37 12/22/18 06:37 12/22/18 06:37 12/22/18 06:37 12/22/18 06:37 Exam: Gen.: Elderly female. No acute distress Skin: Good turgor. Ecchymosis of skin covering phalanges. ENT: Moist oral mucosa. No obvious superior tongue lesions Cardiac: Irregular rhythm. Non-tachycardic. No murmur Respiratory: Decreased lung sounds in right lower lobe. CTA otherwise. Abdomen: Some tenderness that patient states is chronic. Reducible hernia palpated. Extremities: Capillary refill less than 2 seconds upper extremities. No edema of lower extremities. Psychiatric: Appropriate mood and behavior. Answers questions coherently - Assessment and Plan (1) Osteomyelitis Current Visit: Yes Status: Suspected Assessment and Plan: -suspected 2/2 chronic sacral decubitis ulcer -Patient without elevated WBC or temperature. CRP high at 155. -MRI 12/17/18 showing this likely in the distal sacral region -ID consulted -will receive bone marrow bx 12/21/18 12/21/18 -Blood cultures negative 2 to date -Sacral biopsy results pending 12/22/18 -Blood cultures negative and final. -biopsy 12/21/18 culture shows no growth at 24 hours (2) Pulmonary emboli Current Visit: Yes Status: Acute Assessment and Plan: -Likely secondary to multiple myeloma -Patient dyspneic on arrival -As seen on chest CTA. Right lower lobe. -Will need lifelong anticoagulation. Continue heparin drip. 12/21/18 -No updates 12/22/18 -Heparin drip DC'd. Apixaban 5 mg twice a day (3) DVT, bilateral lower limbs Current Visit: Yes Status: Acute Assessment and Plan: -Likely secondary to multiple myeloma -As seen on venous Doppler lower extremity. Right great saphenous and left distal iliac. -Heparin drip. 12/21/18 -No updates 12/22/18 -Heparin drip DC'd .apixaban as above (4) Fracture of left ischial tuberosity Current Visit: Yes Status: Acute Assessment and Plan: -likely 2/2 rehabilitation regimend per chart -as seen on hip x-ray 12/17/18 -No intervention for now (5) Pleural effusion Current Visit: Yes Status: Acute Assessment and Plan: -Unknown cause at this point -Right pleural effusion as seen on CTA -no therapy as of now (6) Afib Current Visit: Yes Status: Acute Assessment and Plan: -Chronic. But potentially secondary to recent PE. -As seen on EKG 12/18. -has not been on anticoagulation for a long time. Metoprolol succinate. 12/20/18 -yesterday afternoon one episode of tachy at 104. other readings have been stable. cont. to monitor 12/22/18 -No recorded tachycardia (7) Multiple myeloma Current Visit: Yes Status: Acute Assessment and Plan: -Diagnosed last year -has been treated with Revlimid (8) Hypokalemia Current Visit: Yes Status: Acute Assessment and Plan: 12/19/18 -consider 2/2 malnutrition -QTc not prolonged EKG 12/18/18 -3.4 this morning. Treated with 40 mEq. We will recheck in a.m. -2g Magnesium given -continue to monitor 12/20/18 -4.3 today. Mag 2.1. 12/21/18 -4.0. Mag 1.9 12/22/18 -4.3. Mag 2.0 (9) Hyponatremia Current Visit: Yes Status: Acute Assessment and Plan: -Resolved -continue to monitor (10) Hypocalcemia Current Visit: Yes Status: Acute Assessment and Plan: -likely 2/2 denosumab -vit D WNL -1g IV calcium gluconate given 12/19/18 12/20/18 -500mg po tid calcium carbonate (11) Constipation Current Visit: Yes Status: Acute Assessment and Plan: -Likely secondary to oxycodone -Has not moved her bowels since 12/18/18 -DC'd docusate sodium and MiraLAX -Senna plus once daily DVT Prophylaxis: apixaban - Summary of Assessment and Plan Summary of Assessment and Plan: (1) Osteomyelitis Current Visit: Yes Status: Suspected Assessment and Plan: -suspected 2/2 chronic sacral decubitis ulcer -Patient without elevated WBC or temperature. CRP high at 155. -MRI 12/17/18 showing this likely in the distal sacral region -ID consulted -will receive bone marrow bx 12/21/18 12/21/18 -Blood cultures negative 2 to date -Sacral biopsy results pending 12/22/18 -Blood cultures negative and final. -biopsy 12/21/18 culture shows no growth at 24 hours (2) Pulmonary emboli Current Visit: Yes Status: Acute Assessment and Plan: -Likely secondary to multiple myeloma -Patient dyspneic on arrival -As seen on chest CTA. Right lower lobe. -Will need lifelong anticoagulation. Continue heparin drip. 12/21/18 -No updates 12/22/18 -Heparin drip DC'd. Apixaban 5 mg twice a day (3) DVT, bilateral lower limbs Current Visit: Yes Status: Acute Assessment and Plan: -Likely secondary to multiple myeloma -As seen on venous Doppler lower extremity. Right great saphenous and left distal iliac. -Heparin drip. 12/21/18 -No updates 12/22/18 -Heparin drip DC'd .apixaban as above (4) Fracture of left ischial tuberosity Current Visit: Yes Status: Acute Assessment and Plan: -likely 2/2 rehabilitation regimend per chart -as seen on hip x-ray 12/17/18 -No intervention for now (5) Pleural effusion Current Visit: Yes Status: Acute Assessment and Plan: -Unknown cause at this point -Right pleural effusion as seen on CTA -no therapy as of now (6) Afib Current Visit: Yes Status: Acute Assessment and Plan: -Chronic. But potentially secondary to recent PE. -As seen on EKG 12/18. -has not been on anticoagulation for a long time. Metoprolol succinate. 12/20/18 -yesterday afternoon one episode of tachy at 104. other readings have been stable. cont. to monitor 12/22/18 -No recorded tachycardia (7) Multiple myeloma Current Visit: Yes Status: Acute Assessment and Plan: -Diagnosed last year -has been treated with Revlimid (8) Hypokalemia Current Visit: Yes Status: Acute Assessment and Plan: 12/19/18 -consider 2/2 malnutrition -QTc not prolonged EKG 12/18/18 -3.4 this morning. Treated with 40 mEq. We will recheck in a.m. -2g Magnesium given -continue to monitor 12/20/18 -4.3 today. Mag 2.1. 12/21/18 -4.0. Mag 1.9 12/22/18 -4.3. Mag 2.0 (9) Hyponatremia Current Visit: Yes Status: Acute Assessment and Plan: -Resolved -continue to monitor (10) Hypocalcemia Current Visit: Yes Status: Acute Assessment and Plan: -likely 2/2 denosumab -vit D WNL -1g IV calcium gluconate given 12/19/18 12/20/18 -500mg po tid calcium carbonate (11) Constipation Current Visit: Yes Status: Acute Assessment and Plan: -Likely secondary to oxycodone -Has not moved her bowels since 12/18/18 -DC'd docusate sodium and MiraLAX -Senna plus once daily - Time Spent with Patient Total time spent is grea Internal Medicine: Result - Labs CBC & Chem 7: 12/22/18 06:18 12/22/18 06:18 Labs: Short CBC 12/21/18 12/22/18 Range/Units 21:28 06:18 WBC 4.9 4.7 (4.3-11.1) K/mcL Hgb 7.6 L 7.9 L (11.5-15.4) g/dL Hct 25.1 L 27.1 L (35.3-44.9) % Plt Count 191 205 (140-400) K/mcL Neutrophils # 2.8 (1.6-8.9) K/mcL BMP 12/22/18 06:18 Sodium 136 Potassium 4.3 Chloride 97 L Carbon Dioxide 25 BUN 15 Creatinine 0.77 Glucose 153 H Calcium 7.0 L - ABG Interpretation ABG results: PT/INR, D-dimer PT 13.7 Seconds (9.4-12.1) H 12/21/18 21:28 - Impressions Impressions Bone Biopsy CT 12/21/18 00:00 IMPRESSION: 1. CT guided core needle sacral bone biopsy discussed above. D/ / Lalo Rubio MD / Lalo Rubio MD Interpreting Provider: Lalo Rubio MD ____ <Amandeep Finney - Last Filed: 12/22/18 16:51> (1) Osteomyelitis Qualifiers: Osteomyelitis type: other chronic hematogenous Osteomyelitis location: other site Qualified Code(s): M86.58 - Other chronic hematogenous osteomyelitis, other site (3) Sacral decubitus ulcer Qualifiers: Pressure injury stage: stage 3 Qualified Code(s): L89.153 - Pressure ulcer of sacral region, stage 3 (4) Multiple myeloma Qualifiers: Multiple myeloma remission status: not in remission Qualified Code(s): C90.00 - Multiple myeloma not having achieved remission (5) Pulmonary emboli Qualifiers: Pulmonary embolism type: other Chronicity: acute Acute cor pulmonale presence: without acute cor pulmonale Qualified Code(s): I26.99 - Other pulmonary embolism without acute cor pulmonale (6) DVT (deep venous thrombosis) Qualifiers: DVT location: lower extremity Affected thrombotic vein of extremity: femoral Chronicity: acute Laterality: bilateral Qualified Code(s): I82.413 - Acute embolism and thrombosis of femoral vein, bilateral <Berto Isaacs G - Last Filed: 12/22/18 17:45> (1) Osteomyelitis Qualifiers: Osteomyelitis type: other chronic hematogenous Osteomyelitis location: other site Qualified Code(s): M86.58 - Other chronic hematogenous osteomyelitis, other site (2) Pulmonary emboli Qualifiers: Pulmonary embolism type: other Chronicity: acute Acute cor pulmonale presence: without acute cor pulmonale Qualified Code(s): I26.99 - Other pulmonary embolism without acute cor pulmonale (3) DVT, bilateral lower limbs Qualifiers: Affected thrombotic vein of extremity: unspecified vein of extremity Chronicity: acute Qualified Code(s): I82.403 - Acute embolism and thrombosis of unspecified deep veins of lower extremity, bilateral (4) Fracture of left ischial tuberosity Qualifiers: Encounter type: initial encounter Fracture type: closed Qualified Code(s): S32.692A - Other specified fracture of left ischium, initial encounter for closed fracture (7) Multiple myeloma Qualifiers: Multiple myeloma remission status: not in remission Qualified Code(s): C90.00 - Multiple myeloma not having achieved remission
--- NOTE | 2018-12-22 09:15 | Infectious Disease Progress No ---
ID Progress Note Date of Encounter: 12/22/18 Time of Encounter: 11:15 - Subjective Subjective: Patient seen and examined at the bedside. She continues to be afebrile and not leukocytotic , she is s/p bippsy of her sacral decub ulcer, currently on tramadol for her hip pain. Prliminary results of the tissue biopsy showed no gram stain, with few white blood cell. post operative cultures pending - Objective CBC & Chem 7: 12/22/18 06:18 12/22/18 06:18 - Exam Vitals: Temp Pulse Resp BP Pulse Ox 98.6 F 73 16 127/69 96 12/22/18 06:37 12/22/18 06:37 12/22/18 06:37 12/22/18 06:37 12/22/18 06:37 Exam: Gen.: Vitals noted. No acute distress. Alert, awake and oriented * 3 to person, place, and time, cachectic, resting comfortably in bed. Pleasant. HEENT: oropharynx clear, Normocephalic, atraumatic, MMM Neck: supple, no JVD, no lymphadenopathy, no carotid bruit. Cardiac: RRR, no murmur, +S1/S2, No BLE edema, PMI non-displaced Pulmonary: CTA bilaterally, no wheezes, rales or rhonchi, equal chest expansion, unlabored breathing Abdomen: soft, nontender, BS noted, no guarding, undistended. No organomegaly, no pulsatile masses, Skin: warm and dry, no visible lesions. Feels warm, clammy, no rashes, no lesions, no erythema MSK: ROM not assessed. no joint swelling noted, gait not assessed while in bed. Non tender calf or clubbing, no cyanosis/clubbing/ or edema Neuro: A&O, moves all extremities, no focal deficits, sensation intact Psych: Appropriate mood and behavior, normal speech. - Assessment and Plan (1) Osteomyelitis Current Visit: Yes Status: Suspected -patient has a chronic sacral decubitis ulcer for the past 3 months . -Patient was afebrile on admission with no leukocytosis, continues to remain afebrile with n leukocytosis. -Her ESR on admission was 106. Lactate was WNL - CT imaging with contrast showed heterogeneous area of slcerosis within the sacram and may be related to chronic osteomyelitis. No definite acute erosive changes were identified. -Patient's blood culture *2 : NGTD PLAN: -Continue to hold off on antibiotics until after biopsy - intraoperative specimen culture ans pathology report pending. -We will start antibiotics depending on the culture results Qualifiers: Osteomyelitis type: other chronic hematogenous Osteomyelitis location: other site Qualified Code(s): M86.58 - Other chronic hematogenous osteomyelitis, other site SNOMED Code(s): 52008498 (2) Sacral decubitus ulcer Current Visit: Yes Status: Acute plan as above Qualifiers: Pressure injury stage: stage 3 Qualified Code(s): L89.153 - Pressure ulcer of sacral region, stage 3 SNOMED Code(s): 668342658 (3) Multiple myeloma Current Visit: Yes Status: Acute She has a history of multiple myeloma she was diagnosed with this condition in June of this year. She follows with [facility] for treatment Patient given denosumab in the hospital Qualifiers: Multiple myeloma remission status: not in remission Qualified Code(s): C90.00 - Multiple myeloma not having achieved remission SNOMED Code(s): 974526083 (4) Pulmonary emboli Current Visit: Yes Status: Acute -Like due to her history of ALL -Patient chest CTA was positive for pulmonary embolus in the right lower lobe. There is mildly dilated main pulmonary artery measuring up to 3.2 cm -Currently on Heparin drip Qualifiers: Pulmonary embolism type: other Chronicity: acute Acute cor pulmonale presence: without acute cor pulmonale Qualified Code(s): I26.99 - Other pulmonary embolism without acute cor pulmonale SNOMED Code(s): 67053930 (5) DVT (deep venous thrombosis) Current Visit: Yes Status: Acute -Venous Doppler test showed - right distal iliac vein, common femoral vein, and superficial femoral vein him on straightening acute thrombosis -Left distal iliac vein and common femoral vein demonstrating acute thrombosis - Currently on Heparin drip. She needs lifelong anticoagulation. -As per the recommendations of oncology,she can be transitioned to either Lovenox or NOAC like Eliquis 5 mg twice a day. Qualifiers: DVT location: lower extremity Affected thrombotic vein of extremity: femoral Chronicity: acute Laterality: bilateral Qualified Code(s): I82.413 - Acute embolism and thrombosis of femoral vein, bilateral SNOMED Code(s): 548633558 (6) Chronic anemia Current Visit: Yes Status: Acute -Patient has a history of chronic anemia -Her hemoglobin admission was 7.5 -Continue to monitor. Transfuse if hemoglobin less than 7. SNOMED Code(s): 470641090 Consult Discharge Plan - Plan Referrals: Lupe Ruvalcaba MD [Primary Care Provider] - - Attending Attestation I examined this patient and my medical decision-making was reviewed with the Re sident Physician. I agree with the documented findings, disposition and treatment plan as described except to the extent set forth below. Assessment and plan: 1. Osteomyelitis of the sacrum seen on the CT abdomen pelvis with elevated ESR - causative organism unknown 2.Left hip pain likely secondary to fracture of the left ischial tuberosity 3.Pulmonary embolism 4.Multiple myeloma 5.DVT bilateral lower extremities 6. Immunosuppressive state Recommendations D/w Dr. Finney even though cultures are pending but index of suspicion for osteomyelitis is high we will place a picc line d/c on vancomycin/cefepime duration of treatment 6 weeks Once cultures from biopsy finalize we will tailor the antibiotics accordingly CrCl 45 - d/w pharmacy we will load her with 1 gram of vanc now followed by 750 mg daily and cefepime 1 gram q12 check cbc, bmp, esr and crop and vanc trough on 12/26 goal trough 10-15 f/u with us on 01/16 at 14:40
[2018-12-22] MEDS: Sennosides/Docusate Sodium TABLET PO SCH ×2 (12:22→12:23)
[2018-12-22] MEDS ORDERED: Lidocaine -MPF 1% 5 ML AMPUL INFILT ONE (14:55)
[2018-12-22] MEDS ORDERED: *HR* Dextrose 50 % in Water (Syg) 50 ML SYRINGE IVP PRN (15:16)
[2018-12-22] MEDS ORDERED: D5% in Water 1,000 ML IVC PRN (15:16)
[2018-12-22] MEDS ORDERED: Dextrose Gel 15 GM/37.5 ML TUBE PO PRN ×2 (15:16)
[2018-12-22] MEDS: Cefepime HCl 1,000 MG in Water for inj. (sterile) 10 ML IVP SCH (16:49)
[2018-12-22] MEDS: Apixaban 5 MG TABLET PO SCH ×2 (16:50→20:53)
[2018-12-22] MEDS: Insulin LISPRO 300 UNITS/3 ML VIAL SQ SCH (16:50)
[2018-12-22] MEDS: Metoprolol XL (24 HR) Succ 50 MG TAB.ER.24H PO SCH (20:53)
[2018-12-22] MEDS: Mirtazapine 15 MG TABLET PO SCH (20:53)
[2018-12-23] MEDS: Cefepime HCl 1,000 MG in Water for inj. (sterile) 10 ML IVP SCH ×2 (03:30→14:39)
[2018-12-23 03:54] LABS: Basophils # 0.1 K/mcL (0.0-0.2); Basophils % 1.3 %; Eosinophils % 0.2 %; Hematocrit 23.8 % (35.3-44.9); Hemoglobin 7.1 g/dL (11.5-15.4); Immature Granulocytes % 0.4 % (0-4); Lymphocytes # 1.3 K/mcL (0.6-4.6); Lymphocytes % 27.7 %; Mean Corpuscular HGB Conc 29.8 g/dL (31.6-35.5); Mean Corpuscular Hemoglobin 27.2 pg (28.0-33.3); Mean Corpuscular Volume 91.2 fL (83.0-100.0); Mean Platelet Volume 8.2 fL (9.4-12.4); Monocytes # 0.7 K/mcL (0.0-1.3); Monocytes % 14.5 %; Neutrophils # 2.6 K/mcL (1.6-8.9); Platelet Count 209 K/mcL (140-400); Red Blood Count 2.61 M/mcL (3.82-4.97); Red Cell Distribution Width 16.7 % (11.5-14.5); Segmented Neutrophils % 55.9 %; White Blood Count 4.7 K/mcL (4.3-11.1)
[2018-12-23 04:17] LABS: BUN/Creatinine Ratio 22 (6-26); Blood Urea Nitrogen 18 mg/dL (8-23); Calcium 6.8 mg/dL (8.6-10.3); Carbon Dioxide 25 mEq/L (23-29); Chloride 101 mEq/L (98-107); Glucose 150 mg/dL (70-105); Osmolality,Calculated 281 (280-300); Potassium 4.5 mEq/L (3.5-5.1); Sodium 133 mEq/L (136-145); eGFR For African Americans > 60 (> 60); eGFR For Non-African Americans > 60 (> 60)
--- NOTE | 2018-12-23 07:39 | Discharge Summary ---
<Amandeep Finney - Last Filed: 12/23/18 13:31> Orders not resulted at time of discharge: Pending orders 12/19/18 06:00 EKG [ECG 12 lead ECG] [ECG] AM 0600 12/21/18 11:05 Surgical Pathology [PTH] Routine 12/21/18 11:36 Culture,Tissue (Biopsy) [RM] Routine 12/24/18 13:00 Vancomycin,Trough Timed Date of Encounter: 12/23/18 - Discharge Diagnosis (1) Osteomyelitis Priority: Secondary Status: Suspected Qualifiers: Osteomyelitis type: other chronic hematogenous Osteomyelitis location: other site Qualified Code(s): M86.58 - Other chronic hematogenous osteomyelitis, other site (2) Chronic anemia Status: Acute (3) Sacral decubitus ulcer Status: Acute Qualifiers: Pressure injury stage: stage 3 Qualified Code(s): L89.153 - Pressure ulcer of sacral region, stage 3 (4) Multiple myeloma Status: Acute Qualifiers: Multiple myeloma remission status: not in remission Qualified Code(s): C90.00 - Multiple myeloma not having achieved remission (5) Pulmonary emboli Status: Acute Qualifiers: Pulmonary embolism type: other Chronicity: acute Acute cor pulmonale presence: without acute cor pulmonale Qualified Code(s): I26.99 - Other pulmonary embolism without acute cor pulmonale (6) DVT (deep venous thrombosis) Status: Acute Qualifiers: DVT location: lower extremity Affected thrombotic vein of extremity: femoral Chronicity: acute Laterality: bilateral Qualified Code(s): I82.413 - Acute embolism and thrombosis of femoral vein, bilateral (7) Anemia Priority: Secondary Status: Chronic Qualifiers: Anemia type: other cause Other causes of anemia: chronic disease, other Qualified Code(s): D63.8 - Anemia in other chronic diseases classified elsewhere Hospital course: Ms. Cancino is a 78 year old female - Time Spent with Patient Total time spent providing and/or coordinating discharge services: - Discharge Medications Prescriptions: New Amitriptyline [Elavil] 100 mg PO HS tablet Apixaban [Eliquis] 5 mg PO BID tablet Naloxone [Narcan] 0.4 mg IVP Q2MPRN PRN inj PRN Reason: See Comments OxyCODONE Oral CONC [Oxycodone Oral Conc] 2.5 mg SL Q6HR PRN 2 Days #12 oral.syg PRN Reason: moderate to severe pain Calcium Carbonate [Tums] 500 mg PO TID tab.chew Sennosides/Docusate Sodium [Senna Plus] 1 each PO DAILY tablet Continued Isosorbide MONOnitrate [Isosorbide Mononitrate ER] 60 mg PO DAILY Tramadol HCl [Ultram] 50 mg PO TID PRN PRN Reason: Pain Cevimeline HCl [Evoxac] 30 mg PO BID Multivit-Min/Iron/Folic Acid/K [Adults Multivitamin Tablet] 1 tab PO DAILY Calcium Carbonate/Vitamin D3 [Oyster Shell 250 mg-Vit D 125] 2 tab PO DAILY Docusate [Colace] 100 mg PO BID Linaclotide [Linzess] 145 mcg PO DAILY Ondansetron HCl [Zofran] 4 mg PO QID Mirtazapine 15 mg PO HS Polyethylene Glycol 3350 [MiraLAX] 17 gm PO DAILY Melatonin 6 mg PO HS Metoprolol Succinate [Toprol Xl] 100 mg PO 2000 Cholecalciferol (D-3) [Vitamin D] 5,000 unit PO DAILY Dexamethasone [Decadron] 20 mg PO AD Lenalidomide [Revlimid] 15 mg PO AD Ondansetron HCl [Zofran] 4 mg PO Q6H PRN PRN Reason: Nausea Home Medications: Isosorbide MONOnitrate [Isosorbide Mononitrate ER] 60 mg PO DAILY 12/03/16 [History] Cevimeline HCl [Evoxac] 30 mg PO BID 03/25/17 [History] Tramadol HCl [Ultram] 50 mg PO TID PRN 03/25/17 [History] Multivit-Min/Iron/Folic Acid/K [Adults Multivitamin Tablet] 1 tab PO DAILY 06/28/18 [History] Calcium Carbonate/Vitamin D3 [Oyster Shell 250 mg-Vit D 125] 2 tab PO DAILY 10/10/18 [History] Docusate [Colace] 100 mg PO BID 10/10/18 [History] Linaclotide [Linzess] 145 mcg PO DAILY 10/10/18 [History] Cholecalciferol (D-3) [Vitamin D] 5,000 unit PO DAILY 12/17/18 [History] Dexamethasone [Decadron] 20 mg PO AD 12/17/18 [History] Lenalidomide [Revlimid] 15 mg PO AD 12/17/18 [History] Melatonin 6 mg PO HS 12/17/18 [History] Metoprolol Succinate [Toprol Xl] 100 mg PO 199912/17/18 [History] Mirtazapine 15 mg PO HS 12/17/18 [History] Ondansetron HCl [Zofran] 4 mg PO Q6H PRN 12/17/18 [History] Ondansetron HCl [Zofran] 4 mg PO QID 12/17/18 [History] Polyethylene Glycol 3350 [MiraLAX] 17 gm PO DAILY 12/17/18 [History] Amitriptyline [Elavil] 100 mg PO HS tablet 12/23/18 [Rx] Apixaban [Eliquis] 5 mg PO BID tablet 12/23/18 [Rx] Calcium Carbonate [Tums] 500 mg PO TID tab.chew 12/23/18 [Rx] Naloxone [Narcan] 0.4 mg IVP Q2MPRN PRN inj 12/23/18 [Rx] OxyCODONE Oral CONC [Oxycodone Oral Conc] 2.5 mg SL Q6HR PRN 2 Days #12 oral.syg 12/23/18 [Rx] Sennosides/Docusate Sodium [Senna Plus] 1 each PO DAILY tablet 12/23/18 [Rx] Allergies/Adverse Reactions: Allergy/AdvReac Type Severity Reaction Status Date / Time bacitracin Allergy Severe Swelling Verified 11/10/18 13:56 [From Triple Antibiotic] of Lip/Tongue/Throat Neomycin Allergy Severe Swelling Verified 11/10/18 13:56 [From Triple Antibiotic] of Lip/Tongue/Throat polymyxin B Allergy Severe Swelling Verified 11/10/18 13:56 [From Triple Antibiotic] of Lip/Tongue/Throat acetaminophen [From Vicodin] Allergy Swelling Verified 11/10/18 13:56 of Lip/Tongue/Throat hydrocodone [From Vicodin] Allergy Swelling Verified 11/10/18 13:56 of Lip/Tongue/Throat shellfish derived Allergy Swelling Verified 11/10/18 13:56 of Lip/Tongue/Throat Penicillins [PCN] AdvReac Rash Verified 11/10/18 13:56 Date of admission: 12/17/18 14:48 Primary care physician: Lupe Ruvalcaba MD Consults: 12/17/18 11:46 Consult to Oncology [CONS] Stat Consulting Provider: [facility] [place] Reason for Consult: h/o multiple myeloma, new DVT Call Completed: Yes 12/17/18 12:42 Consult to Wound Care [CONS] Stat Reason for Consult: sacral decubitus wound Call Completed: No 12/17/18 13:07 Consult to Infectious Diseases [CONS] Routine Consulting Provider: [facility] [place] Reason for Consult: Possible chronic osteomyelitis Call Completed: No Consult to Oncology Hematology [CONS] Routine Consulting Provider: Ella Holley Reason for Consult: b/l DVT, possible splenic infarct, Multiple myeloma Call Completed: No 12/17/18 13:17 Consult to Nutrition [CONS] Routine Comment: Consulting Provider: NUTRITION Reason for Dietary Consult: PO Supplementation 12/18/18 13:52 Consult to Physical Therapy [CONS] Routine Comment: Evaluate, develop and implement POC Reason for Consult: deconditioning Does patient have active BEDREST order?: No Is patient medically & hemodynamically stable?: Yes 12/18/18 13:54 Consult to Occupational Therapy [CONS] Routine Comment: Evaluate, develop and implement POC Reason for Consult: deconditioning Does patient have active BEDREST order?: No Is patient medically & hemodynamically stable?: Yes 12/18/18 14:13 Consult to Recreation Teacher [CONS] Routine Reason for SW Consult: placement 12/18/18 15:08 Consult to Interventional Radiology [CONS] Routine Consulting Provider: Radiology Interventional [facility] Reason for Consult: rule in/out ostemyelitis from sacral decub ulcer Call Completed: Yes 12/19/18 14:40 Consult to Infectious Diseases [CONS] Routine Consulting Provider: [facility] Reason for Consult: sacral biopsy Call Completed: No 12/21/18 08:59 Consult to Interventional Radiology [CONS] Routine Consulting Provider: Radiology Interventional [facility] Reason for Consult: sacral bx r/o osteomyelitis Call Completed: Yes 12/22/18 14:55 Consult to Invasive Line Access Team [CONS] Routine Reason for Consult: Picc Line Insertion Line Type: PICC PICC line indications: FDC Med/Antibiotic - Constitutional Vitals: Temp Pulse Resp BP Pulse Ox 97.6 F 89 14 154/90 94 12/23/18 11:43 12/23/18 11:43 12/23/18 11:43 12/23/18 11:43 12/23/18 11:43 - Patient Status Disposition: Transfer SNF Condition: Fair - Discharge Instructions Follow Up With: Lupe Ruvalcaba MD [Primary Care Provider] - Additional Instructions: -finish antibiotics to completion - Attending Attestation I examined this patient and my medical decision-making was reviewed with the Resident Physician on 12/23/18. I agree with the documented findings, disposition and treatment plan as described except to the extent set forth below. Ms Cancino has been admitted for bilateral LE DVT and PE. She has hx MM. She has been started on anticoagulation. She also noted to have stage 3 sacral decub and had bone biopsy. Due to concern for OM (chronic) she was started on IV abx. She is now afebrile and ready for discharge to SNF. Exam: Alert. Comfortable. NC. Mucus membranes dry. Heart not tachy. No wheeze or rales. Abd soft. Dressing intact. Moves all extremities. No rash. Plan: D/C today. Transfuse 1uint PRBCs prior to discharge. D/C time 38min <Berto Isaacs G - Last Filed: 12/23/18 22:00> - NOTES TO OUTPATIENT PROVIDER Notes to Outpatient Provider: Mrs. Eckert presented to the ER on 12/17/18 with shortness of breath per records. She was treated for DVTs in the right great saphenous and left distal iliac veins, as well as pulmonary embolism in the right lower lobe with a heparin drip. She was also found to have a nondisplaced fracture of her left ischial tuberosity for which no intervention was taken. MRI abdomen and pelvis showed likely osteomyelitis in the sacral region. Sacral biopsy preliminary cultures show no growth but patient has been given a PICC and placed on cefepime bid and vanc bid by ID for presumptive diagnosis. Hyperglycemia in hospital, consider beginning anti-hyperglycemic regimen She will be discharged to SNF. Orders not resulted at time of discharge: Pending orders 12/19/18 06:00 EKG [ECG 12 lead ECG] [ECG] AM 0600 12/21/18 11:05 Surgical Pathology [PTH] Routine 12/21/18 11:36 Culture,Tissue (Biopsy) [RM] Routine Date of Encounter: 12/23/18 Time of Encounter: 09:00 - Discharge Diagnosis (1) Pulmonary emboli Priority: Primary Status: Acute Qualifiers: Pulmonary embolism type: other Chronicity: acute Acute cor pulmonale presence: without acute cor pulmonale Qualified Code(s): I26.99 - Other pulmonary embolism without acute cor pulmonale (2) Osteomyelitis Priority: Secondary Status: Suspected Qualifiers: Osteomyelitis type: other chronic hematogenous Osteomyelitis location: other site Qualified Code(s): M86.58 - Other chronic hematogenous osteomyelitis, other site (3) DVT, bilateral lower limbs Priority: Secondary Status: Acute Qualifiers: Affected thrombotic vein of extremity: unspecified vein of extremity Chronicity: acute Qualified Code(s): I82.403 - Acute embolism and thrombosis of unspecified deep veins of lower extremity, bilateral (4) Fracture of left ischial tuberosity Priority: Secondary Status: Acute Qualifiers: Encounter type: initial encounter Fracture type: closed Qualified C ode(s): S32.692A - Other specified fracture of left ischium, initial encounter for closed fracture (5) Pleural effusion Priority: Secondary Status: Acute (6) Afib Priority: Secondary Status: Acute (7) Multiple myeloma Priority: Secondary Status: Acute Qualifiers: Multiple myeloma remission status: not in remission Qualified Code(s): C90.00 - Multiple myeloma not having achieved remission (8) Hypokalemia Priority: Secondary Status: Acute (9) Hyponatremia Priority: Secondary Status: Acute (10) Hypocalcemia Priority: Secondary Status: Acute (11) Constipation Priority: Secondary Status: Acute Hospital course: Ms. Cancino is a 78 year old female who presented to the ER on 12/17/18 with shortness of breath per records. She was treated for DVTs in the right great saphenous and left distal iliac veins, as well as pulmonary embolism in the right lower lobe with a heparin drip. She was also found to have a nondisplaced fracture of her left ischial tuberosity for which no intervention was taken. MRI abdomen and pelvis showed likely osteomyelitis in the sacral region. Sacral biopsy preliminary cultures show no growth but patient has been given a PICC and placed on cefepime bid and vanc bid by ID for presumptive diagnosis. Hyperglycemia in hospital, consider beginning anti-hyperglycemic regimen She will be discharged to SNF. - Time Spent with Patient Total time spent providing and/or coordinating discharge services: Date of admission: 12/17/18 14:48 Primary care physician: Lupe Ruvalcaba MD Consults: 12/17/18 11:46 Consult to Oncology [CONS] Stat Consulting Provider: [facility] Reason for Consult: h/o multiple myeloma, new DVT Call Completed: Yes 12/17/18 12:42 Consult to Wound Care [CONS] Stat Reason for Consult: sacral decubitus wound Call Completed: No 12/17/18 13:07 Consult to Infectious Diseases [CONS] Routine Consulting Provider: [facility] [place] Reason for Consult: Possible chronic osteomyelitis Call Completed: No Consult to Oncology Hematology [CONS] Routine Consulting Provider: Ella Holley Reason for Consult: b/l DVT, possible splenic infarct, Multiple myeloma Call Completed: No 12/17/18 13:17 Consult to Nutrition [CONS] Routine Comment: Consulting Provider: NUTRITION Reason for Dietary Consult: PO Supplementation 12/18/18 13:52 Consult to Physical Therapy [CONS] Routine Comment: Evaluate, develop and implement POC Reason for Consult: deconditioning Does patient have active BEDREST order?: No Is patient medically & hemodynamically stable?: Yes 12/18/18 13:54 Consult to Occupational Therapy [CONS] Routine Comment: Evaluate, develop and implement POC Reason for Consult: deconditioning Does patient have active BEDREST order?: No Is patient medically & hemodynamically stable?: Yes 12/18/18 14:13 Consult to Recreation Teacher [CONS] Routine Reason for SW Consult: placement 12/18/18 15:08 Consult to Interventional Radiology [CONS] Routine Consulting Provider: Radiology Interventional Cols Reason for Consult: rule in/out ostemyelitis from sacral decub ulcer Call Completed: Yes 12/19/18 14:40 Consult to Infectious Diseases [CONS] Routine Consulting Provider: Infectious Disease [facility] Reason for Consult: sacral biopsy Call Completed: No 12/21/18 08:59 Consult to Interventional Radiology [CONS] Routine Consulting Provider: Radiology Interventional Cols Reason for Consult: sacral bx r/o osteomyelitis Call Completed: Yes 12/22/18 14:55 Consult to Invasive Line Access Team [CONS] Routine Reason for Consult: Picc Line Insertion Line Type: PICC PICC line indications: director long term care Med/Antibiotic - Constitutional Vitals: Temp Pulse Resp BP Pulse Ox 97.5 F L 64 15 112/49 92 12/23/18 03:17 12/23/18 03:17 12/23/18 03:17 12/23/18 03:17 12/23/18 03:17 Exam: Gen.: Early female. No acute distress Skin: Ecchymosis of arms and legs. Good turgor Extremities: Capillary refill less than 2 seconds upper extremities. No lower extremity edema Eyes: Moist conjunctivae. Nonicteric Heart: Irregular rhythm. Regular rate. No murmurs gallops rubs Lungs: Diminished sounds in the bases. Better movement in yesterday Psych: Appropriate mood and behavior. Answers questions coherently Neuro: Eyes able to track movement. No obvious tremor noted. - Patient Status Functional capacity at discharge: independent ambulation Overall status at discharge: patient is progressing back to baseline - Diet and Activity Activity: as per physical therapy Diet: diabetic diet, low fat, low cholesterol, low salt diet
[2018-12-23] MEDS: Insulin LISPRO 300 UNITS/3 ML VIAL SQ SCH ×2 (08:16→11:50)
[2018-12-23] MEDS ORDERED: 0.9 % Sodium Chloride 250 ML ONE (08:31)
[2018-12-23] MEDS: Apixaban 5 MG TABLET PO SCH (08:40)
[2018-12-23] MEDS: (Cevimeline Hcl [Evoxac] 30 MG) PO SCH (08:46)
[2018-12-23] MEDS: traMADol 50 MG TABLET PO PRN (11:56)
--- NOTE | 2018-12-23 13:30 | Physician Discharge Referral ---
ExtendedCare Referral Info Provider in Charge after Transfer: PCP Institutional Level of Care: Skilled - Diagnosis (1) Osteomyelitis Priority: Secondary Status: Suspected (2) Chronic anemia Priority: Secondary Status: Acute (3) Sacral decubitus ulcer Priority: Secondary Status: Acute (4) Multiple myeloma Priority: Secondary Status: Acute (5) Pulmonary emboli Priority: Primary Status: Acute (6) DVT (deep venous thrombosis) Priority: Primary Status: Acute Prognosis: Fair Aware of Diagnosis: Patient Aware of Prognosis: Patient - Transfer Medications Prescriptions: OxyCODONE Oral CONC [Oxycodone Oral Conc] 2.5 mg SL Q6HR PRN 2 Days #12 oral.syg PRN Reason: moderate to severe pain Home Medications: Isosorbide MONOnitrate [Isosorbide Mononitrate ER] 60 mg PO DAILY 12/03/16 [History] Cevimeline HCl [Evoxac] 30 mg PO BID 03/25/17 [History] Tramadol HCl [Ultram] 50 mg PO TID PRN 03/25/17 [History] Multivit-Min/Iron/Folic Acid/K [Adults Multivitamin Tablet] 1 tab PO DAILY 06/28/18 [History] Calcium Carbonate/Vitamin D3 [Oyster Shell 250 mg-Vit D 125] 2 tab PO DAILY 10/10/18 [History] Docusate [Colace] 100 mg PO BID 10/10/18 [History] Linaclotide [Linzess] 145 mcg PO DAILY 10/10/18 [History] Cholecalciferol (D-3) [Vitamin D] 5,000 unit PO DAILY 12/17/18 [History] Dexamethasone [Decadron] 20 mg PO 12/17/18 [History] Lenalidomide [Revlimid] 15 mg PO 12/17/18 [History] Melatonin 6 mg PO HS 12/17/18 [History] Metoprolol Succinate [Toprol Xl] 100 mg PO 2000 12/17/18 [History] Mirtazapine 15 mg PO HS 12/17/18 [History] Ondansetron HCl [Zofran] 4 mg PO Q6H PRN 12/17/18 [History] Ondansetron HCl [Zofran] 4 mg PO QID 12/17/18 [History] Polyethylene Glycol 3350 [MiraLAX] 17 gm PO DAILY 12/17/18 [History] Amitriptyline [Elavil] 100 mg PO HS tablet 12/23/18 [Rx] Apixaban [Eliquis] 5 mg PO BID tablet 12/23/18 [Rx] Calcium Carbonate [Tums] 500 mg PO TID tab.chew 12/23/18 [Rx] Naloxone [Narcan] 0.4 mg IVP Q2MPRN PRN inj 12/23/18 [Rx] OxyCODONE Oral CONC [Oxycodone Oral Conc] 2.5 mg SL Q6HR PRN 2 Days #12 oral.syg 12/23/18 [Rx] Sennosides/Docusate Sodium [Senna Plus] 1 each PO DAILY tablet 12/23/18 [Rx] Allergies/Adverse Reactions: Allergy/AdvReac Type Severity Reaction Status Date / Time bacitracin Allergy Severe Swelling Verified 11/10/18 13:56 [From Triple Antibiotic] of Lip/Tongue/Throat Neomycin Allergy Severe Swelling Verified 11/10/18 13:56 [From Triple Antibiotic] of Lip/Tongue/Throat polymyxin B Allergy Severe Swelling Verified 11/10/18 13:56 [From Triple Antibiotic] of Lip/Tongue/Throat acetaminophen [From Vicodin] Allergy Swelling Verified 11/10/18 13:56 of Lip/Tongue/Throat hydrocodone [From Vicodin] Allergy Swelling Verified 11/10/18 13:56 of Lip/Tongue/Throat shellfish derived Allergy Swelling Verified 11/10/18 13:56 of Lip/Tongue/Throat Penicillins [PCN] AdvReac Rash Verified 11/10/18 13:56 - Respiratory Orders None Smoking Cessation: Smoking cessation has been advised. For more information, call the [place] Tobacco Quit Line at 1-672-LMXN-NOW. - Ancillary Orders May use pressure relief devices daily prn, May consult with Dentist, Sand Mixer Machine, Manager Cafe PRN - Advance Directives Code Status: DNR-Arrest/Don't Intubate - Mobility Orders Chair, Ambulate - Rehabiliation Orders Rehab Potential: Fair Rehab Orders: Evaluation for Physical Therapy, Evaluation for Occupational Therapy - Treatments Skin tear care topically daily PRN per policy, May check for fecal impaction rectally daily PRN, Fleet enema rectally every other day PRN cleansing purposes - Diet Orders No Concentrated Sweets, Cardiac House Supplement per Dietary: Smith gelatin and cottage cheese PETR and DIN CERTIFICATION: I certify that the transfer of the above named patient to an Extended Care Facility is necessary for the continuing treatment of the diagnosis listed. The above information is true and accurate reflection of patient's current condition. Confidential - Redisclosure prohibited without a patient's written consent.
[2018-12-23 14:19] VITALS: BP 125/77
[2018-12-23] MEDS ORDERED: Aminoglycoside Consult 1 EACH MC ONE (18:31)
== END 2018-12-23 18:32 | DRG 477 ==
LOC: EMEROOARM 08:02 → SUATTDRO 14:48 → 3NENU 14:48 → CDU 12-18 15:56 → 3ANU 12-19 18:37
PROVIDERS: ADMIT Internal Medicine; ATTEND Internal Medicine